=== PATIENT | male | born 1955 | race Hispanic/Latino ===

== ENCOUNTER 2018-10-01 18:23 | Inpatient (IN) | payer MEDICARE, OTHER ==
[~2018-10-01] VITALS: Ht 177.8 cm; Wt 93.4 kg
[~2018-10-01 18:23] MED LIST: ASPIRIN81 MG PO; DIGOXIN250 MCG PO; FLAGYL500 MG PO; HUMULIN 70100 UNIT/1; HUMULIN R100 UNIT/2 SC; LIPITOR20 MG PO; LISINOPRIL2.5 MG PO; METOPROLOL SUCC25 MG PO; NEXIUM40 MG PO; NOVOLOG MI100 UNITS/ SQ; PEPCID20 MG PO; PLAVIX75 MG PO; TRULICITY INJ; WOUND VAC; [UNRECOGNIZED DRUG - CODE] PO
--- OUTSIDE RECORDS SUMMARY | 2018-10-01 18:27 | XMS REPORT | Summary of Care ---
Author Author [facility] Organization [facility] Address Unknown Phone Unavailable Encounter HQ Encntr_alias(FIN) [id number] Date(s): 08/06/17 - 08/06/17 [facility] [address] [place] [address]- [phone] Discharge Disposition: Home or Self Care Attending Physician: Ana Gunn DO Referring Physician: Ana Gunn DO Vital Signs No data available for this section Problem List No data available for this section Allergies, Adverse Reactions, Alerts No data available for this section Medications No data available for this section Results No data available for this section Immunizations No data available for this section Procedures No data available for this section Social History No data available for this section Assessment and Plan No data available for this section
--- OUTSIDE RECORDS SUMMARY | 2018-10-01 18:27 | XMS REPORT | Summary of Care ---
Author Author [facility] [place] Organization [facility] [place] Address Unknown Phone Unavailable Encounter HQ Encntr_alias(FIN) [id number] Date(s): 07/24/17 - 07/24/17 [facility] [place] [address] [address] [phone] Discharge Disposition: Home or Self Care Attending Physician: Chaka Andrea MD Vital Signs No data available for this [...]
--- OUTSIDE RECORDS SUMMARY | 2018-10-01 18:27 | XMS REPORT | Summary of Care ---
Author Author [facility] Outpatient [facility] Address Unknown Phone Unavailable Encounter HQ Encntr_alias(FIN) [id number] Date(s): 07/26/17 - 07/26/17 [facility] [address] [facility], [address] [place] [phone] Discharge Disposition: Home or Self Care Attending [...]
--- OUTSIDE RECORDS SUMMARY | 2018-10-01 18:27 | XMS REPORT | Continuity of Care Document ---
Author Author [email or web address] Organization [email or web address] Address Unknown Phone Unavailable Care Team Providers Care Supervisor [place] Department Name Role Phone [employer] Unavailable Unavailable Problems Problem Status Onset Date Classification Date Reported Comments Source Calculus of gallbladder with chronic cholecystitis without obstruction 09/07/2017 03/17/2018 [facility] LAP MARTÍNEZ Active 08/19/2017 [facility] R10.9, K80.20 Active 08/01/2017 [facility] M54.2 - CERVICALGIA Active 07/17/2017 LISA Hernandez Heart failure, unspecified Active Diagnosis 12/22/2015 [facility] Atheroscler of [place] artery of both legs with intermit claudication Active Diagnosis 12/22/2015 [facility] Benign hypertensive heart disease without heart failure Active Problem 12/22/2015 [facility] 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, type II or unspecified type, not stated as uncontrolled Active Problem 12/22/2015 [facility] 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, type I [juvenile type], not stated as uncontrolled Active Problem 12/22/2015 [facility] Atherosclerosis of [place] coronary artery, angina presence unspecified, unspecified whether [place] or transplanted heart Active Diagnosis 12/22/2015 [facility] Hypertensive heart disease with heart failure Active Diagnosis 12/22/2015 [facility] Pure hypercholesterolemia Active Problem 12/22/2015 [facility] Coronary atherosclerosis of [place] coronary artery Active Problem 12/22/2015 [facility] Calculus in biliary tract (disorder) Active Problem 03/17/2018 [facility] Cardiac defibrillator in situ (finding) Active Problem 03/17/2018 [facility] Cardiac pacemaker in situ (finding) Active Problem 03/17/2018 [facility] Coronary arteriosclerosis (disorder) Active Problem 03/17/2018 [facility] Diabetes mellitus (disorder) Active Problem 03/17/2018 [facility] Gastroesophageal reflux disease (disorder) Active Problem 03/17/2018 [facility] History of - myocardial infarction (context-dependent category) Active Problem 03/17/2018 [facility] Hyperlipidemia (disorder) Active Problem 03/17/2018 [facility] Gastro-esophageal reflux disease without esophagitis 03/17/2018 [facility] Essential (primary) hypertension 03/17/2018 [facility] Type 2 diabetes mellitus without complications 03/17/2018 [facility] oysterman (current) use of insulin 03/17/2018 [facility] Personal history of other diseases of the circulatory system 03/17/2018 [facility] Presence of coronary angioplasty implant and graft 03/17/2018 [facility] Presence of cardiac pacemaker 03/17/2018 [facility] intermediate (current) use of antithrombotics/antiplatelets 03/17/2018 [facility] Old myocardial infarction 03/17/2018 [facility] Unspecified asthma, uncomplicated 03/17/2018 [facility] oysterman (current) use of opiate analgesic 03/17/2018 [facility] Medications Medication Details Route Status Patient Instructions Ordering Provider Order Date Source ketOROLAC (ANES) IV, ONCE Inactive 08/28/2017 [facility] neostigmine (ANES) Route: IV, Drug form: INJ, ONCE, Stop date: 08/28/17 12:33:00 CDT Inactive 08/28/2017 [facility] glycopyrrolate (ANES) Route: IV, Drug form: INJ, ONCE, Stop date: 08/28/17 12:33:00 CDT Inactive 08/28/2017 [facility] phenylephrine (ANES) Route: IV, Drug form: INJ, ONCE, Stop date: 08/28/17 12:27:00 CDT Inactive 08/28/2017 [facility] Ketorolac 30 mg, 1 mL, Route: IVP, Drug form: INJ, ONCE, Dosing Weight 100.114, kg, Start date: 08/28/17 12:22:00 CDT, Stop date: 08/28/17 12:22:00 CDTNotes: (Same as:Toradol) IV bolus must be given >15 seconds. Give IM administration slowly and deeply into the muscle. Not for use > 4 days MEDICATION WASTE Product Size: 30 mg Product Wasted: ___ mg No Longer Active 08/28/2017 [facility] Acetaminophen 1,000 mg, Route: IVPB, Drug form: INJ, ONCE, Dosing Weight 100.114, kg, PRN Pain Score 1-3, Start date: 08/28/17 12:22:00 CDT Inactive 08/28/2017 [facility] Morphine 2 mg, Route: IVP, Q5Min, Dosing Weight 100.114, kg, PRN Pain Score 4-6, Start date: 08/28/17 12:22:00 CDT, Duration: 5 doses or times, Stop date: Limited # of times Inactive 08/28/2017 [facility] Oxycodone 5 mg, Route: PO, Drug form: TAB, Q4H, Dosing Weight 100.114, kg, PRN Pain Score 4-6, Start date: 08/28/17 12:22:00 CDT, Duration: 30 day, Stop date: 09/27/17 12:21:00 CDT Inactive 08/28/2017 [facility] Hydromorphone 0.5 mg, Route: IVP, Q5Min, Dosing Weight 100.114, kg, PRN Pain Score 7-10, Start date: 08/28/17 12:22:00 CDT, Duration: 4 doses or times, Stop date: Limited # of times Inactive 08/28/2017 [facility] Fentanyl 25 microgram, Route: IVP, Q5Min, Dosing Weight 100.114, kg, PRN Pain Score 4-6, Priority: Routine, Start date: 08/28/17 12:22:00 CDT, Duration: 4 doses or times, Stop date: Limited # of times Inactive 08/28/2017 [facility] Naloxone 0.4 mg, Route: IVP, Q2MIN, Dosing Weight 100.114, kg, PRN Narcotic Reversal, Start date: 08/28/17 12:22:00 CDT, Duration: 8 doses or times, Stop date: Limited # of times Inactive 08/28/2017 [facility] Flumazenil 0.2 mg, Route: IVP, PRN, Dosing Weight 100.114, kg, PRN Benzodiazepine Reversal, Initial dose, Start date: 08/28/17 12:22:00 CDT, Duration: 30 day, Stop date: 09/27/17 12:21:00 CDT Inactive 08/28/2017 [facility] Diphenhydramine 12.5 mg, Route: IVP, Drug form: INJ, Q6H, Dosing Weight 100.114, kg, PRN Itching, Start date: 08/28/17 12:22:00 CDT, Duration: 30 day, Stop date: 09/27/17 12:21:00 CDT Inactive 08/28/2017 [facility] Meperidine 12.5 mg, Route: IVP, Q30Min, Dosing Weight 100.114, kg, PRN Other -See Comment, For shivering, Start date: 08/28/17 12:22:00 CDT, Duration: 2 doses or times, Stop date: Limited # of times Inactive 08/28/2017 [facility] Promethazine 6.25 mg, Route: IVPB, ONCE, Dosing Weight 100.114, kg, PRN Nausea & Vomiting, Start date: 08/28/17 12:22:00 CDT Inactive 08/28/2017 [facility] 72 HR Scopolamine 0.0139 MG/HR Transdermal Patch 1 patch, Route: TOP, Drug Form: ERFILM, Dosing Weight 100.114, kg, ONCE, Apply behind ear. Avoid use in elderly., Start date: 08/28/17 12:22:00 CDT, Stop date: 08/28/17 12:22:00 CDTNotes: Change patch every 72 hours (Same as: Transderm-Scop) No Longer Active 08/28/2017 [facility] Ondansetron 4 mg, Route: IVP, ONCE, Dosing Weight 100.114, kg, PRN Nausea & Vomiting, Start date: 08/28/17 12:22:00 CDT Inactive 08/28/2017 [facility] Calcium Chloride 0.0014 MEQ/ML / Potassium Chloride 0.004 MEQ/ML / Sodium Chloride 0.103 MEQ/ML / Sodium Lactate 0.028 MEQ/ML Injectable Solution 1,000 mL, Rate: 125 ml/hr, Infuse over: 8 hr, Route: IV, Dosing Weight 100.114 kg, Total Volume: 1,000, Start date: 08/28/17 12:22:00 CDT, Duration: 30 day, Stop date: 09/27/17 12:21:00 CDT, 2.26, m2 Inactive 08/28/2017 [facility] Acetaminophen 300 MG / Codeine Phosphate 30 MG Oral Tablet [Tylenol with Codeine #3] 1 - 2 tab, PO, Q4H, PRN Pain, X 3 day, # 20 tab, 0 Refill(s) No Longer Active 08/28/2017 [facility] dexamethasone (ANES) Route: IV, Drug form: INJ, ONCE, Stop date: 08/28/17 11:32:00 CDT Inactive 08/28/2017 [facility] diphenhydrAMINE (ANES) Route: IV, Drug form: INJ, ONCE, Stop date: 08/28/17 11:32:00 CDT Inactive 08/28/2017 [facility] acetaminophen (ANES) Route: IV, Drug form: INJ, ONCE, Stop date: 08/28/17 11:27:00 CDT Inactive 08/28/2017 [facility] metoclopramide (ANES) Route: IV, Drug form: INJ, ONCE, Stop date: 08/28/17 11:27:00 CDT Inactive 08/28/2017 [facility] Amidate (ANES) Route: IV, Drug form: INJ, ONCE, Stop date: 08/28/17 11:27:00 CDT Inactive 08/28/2017 [facility] rocuronium (ANES) Route: IV, Drug form: INJ, ONCE, Stop date: 08/28/17 11:27:00 CDT Inactive 08/28/2017 [facility] ceFAZolin (ANES) Route: IV, Drug form: INJ, ONCE, Stop date: 08/28/17 11:27:00 CDT Inactive 08/28/2017 [facility] famotidine (ANES) Route: IV, Drug form: INJ, ONCE, Stop date: 08/28/17 11:27:00 CDT Inactive 08/28/2017 [facility] midazolam (ANES) Route: IV, Drug form: SOLN, ONCE, Stop date: 08/28/17 11:22:00 CDT Inactive 08/28/2017 [facility] propofol (ANES) Route: IV, Drug form: INJ, ONCE, Stop date: 08/28/17 11:22:00 CDT Inactive 08/28/2017 [facility] fentaNYL (ANES) Route: IV, Drug form: INJ, ONCE, Stop date: 08/28/17 11:22:00 CDT Inactive 08/28/2017 [facility] lidocaine (ANES) Route: IV, Drug form: INJ, ONCE, Stop date: 08/28/17 11:22:00 CDT Inactive 08/28/2017 [facility] Lactated Ringers Injection IV (ANES) 1000 mL Route: IV, Total Volume: 1,000, Start date: 08/28/17 10:21:00 CDT, Stop date: 08/28/17 11:21:00 CDT Inactive 08/28/2017 [facility] Calcium Chloride 0.0014 MEQ/ML / Potassium Chloride 0.004 MEQ/ML / Sodium Chloride 0.103 MEQ/ML / Sodium Lactate 0.028 MEQ/ML Injectable Solution 1,000 mL, Rate: 25 ml/hr, Infuse over: 40 hr, Route: IV, Dosing Weight 100.114 kg, Total Volume: 1,000, Start date: 08/28/17 8:49:00 CDT, Duration: 30 day, Stop date: 09/27/17 8:48:00 CDT, 2.26, m2 Inactive 08/28/2017 [facility] 72 HR Scopolamine 0.0139 MG/HR Transdermal Patch 1 patch, Route: TOP, Drug Form: ERFILM, Dosing Weight 100.114, kg, ONCE, Start date: 08/28/17 8:49:00 CDT, Stop date: 08/28/17 8:49:00 CDT Inactive 08/28/2017 [facility] Melatonin Bedtime, 0 Refill(s) Active 08/23/2017 [facility] Glucosamine PO, 0 Refill(s) Active 08/23/2017 [facility] Nortriptyline PO, 0 Refill(s) Active 08/23/2017 [facility] Trulicity Pen SUB-Q, 0 Refill(s) Active 08/23/2017 [facility] Esomeprazole 40 MG Enteric Coated Capsule [Nexium] 40 mg=1 cap, PO, Daily, # 30 cap, 0 Refill(s) Active 08/23/2017 [facility] clopidogrel 75 mg oral tablet 75 mg=1 tab, PO, Daily, # 30 tab, 0 Refill(s) Active 08/23/2017 [facility] Lisinopril PO, Daily, 0 Refill(s) Active 08/23/2017 [facility] metoprolol tartrate 25 mg oral tablet 25 mg=1 tab, PO, BID, # 180 tab, 0 Refill(s) Active 08/23/2017 [facility] Lipitor PO, Daily, 0 Refill(s) Active 08/23/2017 [facility] Plavix 1 tablet Orally Active 75 MG Orally Once a day [facility] 01/11/2014 Micki Sweet Nexium 1 capsule Orally Active 40 MG Orally [facility] Liz[facility] Unknown NA Active [facility] Glucosamine Chondroitin Complx Unknown NA Active [facility] Lipitor 1 tablet Orally Active 10 MG Orally Once a [facility] rose Lisinopril 1 tablet Orally Active 5 MG Orally Once a day [facility] Insulin Unknown NA Active [facility] Trulicity 0.5 ml Subcutaneous Active 0.75 MG/0.5ML Subcutaneous [facility] Multi For Him 50+ Unknown NA Active [facility] Metoprolol Succinate one half tablet Orally Active 50 MG Orally twice a day [facility] Allergies, Adverse Reactions, Alerts Substance Category Reaction Severity Reaction type Status Date Reported Comments Source N.K.D.A. Adverse Reaction Info Not Available Adverse Reaction Active 03/08/2015 [facility] Immunizations No Data Provided for This Section Results No Data Provided for This Section Pathology Reports No Data Provided for This Section Diagnostic Reports Report Value Date Source Abdomen RUQ US Patient Name: ARCHANA ABDI : 1955; Age: 62 years Male MR: [id number] Study: Abdomen RUQ US 08/06/2017 11:35 AM CDT Clinical Indication: - R10.9 Unspecified abdominal pain. COMPARISON: None TECHNIQUE: Grayscale and limited color sonographic evaluation of the right upper quadrant of the abdomen and gallbladder region was performed with standard technique. FINDINGS: LIVER: The visualized liver shows normal contour, size, and morphology. There is increased parenchymal echotexture. BILE DUCTS: The intrahepatic and extrahepatic bile ducts are not dilated. The common bile duct measures 3.9 mm. The distal common bile duct is not well seen. GALLBLADDER: Shadowing gallstones with slight gallbladder wall thickening up to 4.2 mm. PANCREAS: Obscured by bowel gas. KIDNEY: The right kidney measures 12.5 x 6.5 x 6.2 cm. The renal cortical thickness measures 1.6 cm. There is normal renal contour and morphology, with normal parenchymal echotexture. There is no hydronephrosis. AORTA AND INFERIOR VENA CAVA: Visualized portions appear normal. ASCITES: There is no right upper quadrant abdominal ascites. IMPRESSION: 1. Hepatocellular disease most likely due to fatty infiltration. 2. Gallstones with gallbladder wall thickening. In the right clinical setting, cholecystitis could be considered. These findings are communicated to Ana Gunn DO via perfect serve at 08/06/2017 2:55 PM CDT. SL: [id number] 08/06/2017 [facility] wo contrast CT EXAM: CT CHEST WITHOUT CONTRAST DATE: 07/26/2017 11:47 AM CDT INDICATION: - R07.9 Chest pain, unspecified TECHNIQUE: Volumetric CT acquisition of the chest without contrast. Axial, sagittal and coronal reconstructions. Axial MIP images included. IV contrast: None. DLP: 845 mGy-cm COMPARISON: Two-view chest x-ray July 24, 2017 DISCUSSION: Lower Neck: The visible portions or the lower neck and thyroid are unremarkable. Heart, Mediastinum, and Great Vessels: No cardiomegaly or pericardial effusion. Atherosclerotic disease is present in the coronary arteries. Leads from the ICD/pacemaker terminate in the right atrium, right ventricle, and coronary sinus. Lymph Nodes: No mediastinal, axillary or internal mammary lymphadenopathy. Hilar lymph nodes are suboptimally evaluated due to the absence of IV contrast. Lungs and airways and pleura: No pleural effusion or pneumothorax. There is subsegmental atelectasis in the bilateral lung lower lobes, middle lobe, and lingula. There is elevation of the right hemidiaphragm. The airways are clear. No suspicious pulmonary nodules. Esophagus and Upper abdomen: There are numerous cholesterol stones within the gallbladder. Additionally there is a small amount of pericholecystic fluid as well as mild fat stranding adjacent to the gallbladder. There is fatty atrophy of the pancreas. Calcified granulomas are present in the spleen. Bones and Soft Tissues: Degenerative changes are seen throughout the visualized spine. Healed left-sided rib fractures are present. No aggressive bony lesions. Pulse generator from ICD/pacemaker is present in the subcutaneous tissues of the anterior left chest wall IMPRESSION: 1. Subsegmental atelectasis in the bilateral lower lobes as well as the right middle lobe and lingula with elevation of the right hemidiaphragm. 2. Cholelithiasis with small amount of pericholecystic fluid and mild pericholecystic fat stranding. Further evaluation with ultrasound of the abdomen is recommended. 07/26/2017 [facility] 2 views DX Exam: Two-view chest x-ray Reason for Exam: - R07.9 Chest pain, unspecified Comparison Exam: X-ray 09/02/2004 Discussion: Cardiomediastinal silhouette is within normal limits. Atelectasis/airspace consolidation seen within the right lower lung, obscuring the right hemidiaphragm. 2-lead cardiac device is seen with the base overlying the lateral aspect of the left hemithorax. Patient is status post ORIF of the left clavicle. No acute bony abnormalities. Impression: 1. Atelectasis/airspace consolidation seen within the right lower lung, obscuring the right hemidiaphragm. 07/24/2017 LISA [facility] Spine cervical series DX EXAM: Spine cervical series DX HISTORY: - M54.2 Cervicalgia COMPARISON: None AP, lateral, odontoid, lateral flexion and lateral extension views of the cervical spine. FINDINGS: AP alignment is normal and there is no listhesis with flexion or extension. There is moderate uncovertebral hypertrophy change of the cervical spine. There is moderate disc space narrowing at C6-7 and mild disc space narrowing at C7-T1. Prevertebral soft tissues are normal. There is a left clavicle fixation plate and screws. IMPRESSION: Degenerative change as above. 07/17/2017 LISA Hernandez Consultation Notes No Data Provided for This Section Discharge Summaries No Data Provided for This Section History and Physicals No Data Provided for This Section Vital Signs Vital Sign Value Date Comments Source Systolic (mm Hg) 120 08/28/2017 [facility] Diastolic (mm Hg) 67 08/28/2017 [facility] Respitory Rate 14 08/28/2017 [facility] Systolic (mm Hg) 100 08/28/2017 [facility] Diastolic (mm Hg) 55 08/28/2017 [facility] Respitory Rate 12 08/28/2017 [facility] Systolic (mm Hg) 106 08/28/2017 [facility] Diastolic (mm Hg) 45 08/28/2017 [facility] Respitory Rate 10 08/28/2017 [facility] BMI Calculated 30.78 08/23/2017 [facility] Weight 100.114 08/23/2017 [facility] Height 180.34 cm 08/23/2017 [facility] Temperature Oral (F) 97.9 F 08/23/2017 [facility] Heart Rate 78 08/23/2017 [facility] Weight 217 03/08/2015 Micki Sweet Heart Rate 76 03/08/2015 Micki Sweet Diastolic (mm Hg) 70 03/08/2015 Micki Sweet Systolic (mm Hg) 130 03/08/2015 Micki Sweet Encounters Location Location Details Encounter Type Encounter Number Reason For Visit Attending Provider ADM Date DC Date Status Source Micki Sweet MD, PA f/u 2 [facility] [id number] 03/08/2015 03/08/2015 Micki Sweet [facility] [place] [facility] [id number] Carissa Saturday07/17/2017 07/18/2017 LISA Camachoadena [facility] [place] [facility] [id number] Chaka Andrea 07/24/2017 07/25/2017 LISA Morrisa [facility] [place] [facility] [id number] Chaka Andrea 07/26/2017 07/27/2017 [facility] Outpatient [id number] Obonoruma Ekhaese 08/06/2017 08/07/2017 [facility] [id number] [place] Ekhaese 08/28/2017 08/28/2017 [facility] Procedures Procedure Code Date Perfomer Comments Source Placement of stent in cardiac conduit [id number] 02/11/2015 [facility] Arthroscopy of knee [id number] [facility] Arthroscopy of shoulder [id number] [facility] Cardiac catheterization [id number] [facility] Implantation of automatic cardiac defibrillator [id number] [facility] Implantation of cardiac pacemaker [id number] [facility] Operation [id number] [facility] Assessment and Plan No Data Provided for This Section Plan of Care No Data Provided for This Section Social History Social History Date Source Social History TypeResponse Substance Abuse Use: None. Alcohol Past, Previous treatment: None. Smoking Status Never smoker; Exposure to Tobacco Smoke None; Cigarette Smoking Last 365 Days No; Reg Smoking Cessation Counseling No entered on: 08/28/17 08/23/2017 [facility] No data available for this section 07/27/2017 [facility] [place] No data available for this section 07/25/2017 LISA David Social History ElementQualifiersDate Reported Caffeine: yes. 1 diet coke a day Mar 08, 2015 Smoking: no. Are you a: Never smoker Mar 08, 2015 Alcohol: socially. socially, very rarely Mar 08, 2015 03/08/2015 Micki Sweet Family History No Data Provided for This Section Advance Directives No Data Provided for This Section Functional Status No Data Provided for This Section
--- OUTSIDE RECORDS SUMMARY | 2018-10-01 18:27 | XMS REPORT | Summary of Care ---
Author Author [facility] [place] Organization [facility] [place] Address Unknown Phone Unavailable Encounter HQ Encntr_alias(FIN) [id number] Date(s): 07/17/17 - 07/17/17 [facility] [place] [address] [address]- [phone] Discharge Disposition: Home or Self Care Attending Physician: SaturdayCarissa MD Vital Signs No data available for [...]
--- OUTSIDE RECORDS SUMMARY | 2018-10-01 18:27 | XMS REPORT ---
Author Author Micki Sweet Organization [employer] Address Unknown Phone Unavailable Care Team Providers Care Home Health Attendant Name Role Phone Micki Sweet CP Unavailable Allergies, Adverse Reactions, Alerts Substance Reaction Event Type N.K.D.A. 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, type I [juvenile type], not stated as uncontrolled 250.01 Active Assessment Atherosclerosis of kaib[place] coronary artery, angina presence unspecified, unspecified whether kaibab or transplanted heart I25.10 Active Assessment Hypertensive heart disease with heart failure I11.0 Active Problem Pure hypercholesterolemia 272.0 Active Problem Coronary atherosclerosis of kaib[place] coronary artery 414.01 Active Medications Medication Code System Code Instructions Start Date End Date Status Dosage Plavix [facility] [address]-85 75 MG Orally Once a day Jan 11, 2014 Active 1 tablet Nexium [facility] [address]-89 40 MG Orally Once a day Active 1 capsule Lizzy Unknown 0 Active Unknown Glucosamine Chondroitin Complx [facility] 42224-[address]391 Active Unknown Lipitor [facility] [address]-89 10 MG Orally Once a day Active 1 tablet Lisinopril [facility] [address]-23 5 MG Orally Once a day Active 1 tablet Insulin Unknown 0 Active Unknown Trulicity [facility] [address]-24 0.75 MG/0.5ML Subcutaneous Active 0.5 ml Multi For Him 50+ [facility] 04803-88890 Active Unknown Metoprolol Succinate [facility] [address]-20 50 MG Orally twice a day Active one half tablet Social History Social History Element Qualifiers Date Reported Caffeine: yes. 1 diet coke a day Mar 08, 2015 Smoking: no. Are you a: Never smoker Mar 08, 2015 Alcohol: socially. socially, very rarely Mar 08, 2015 Vital Signs Date/Time: Mar 08, 2015 Weight 217 lbs Cardiac Monitoring Heart Rate 76 /min Blood Pressure Diastolic 70 mm Hg Blood Pressure Systolic 130 mm Hg Summary Purpose [employer] Submission
--- OUTSIDE RECORDS SUMMARY | 2018-10-01 18:28 | XMS REPORT | Summary of Care ---
Author Author [facility] Organization [facility] Address Unknown Phone Unavailable Encounter MAREN Auguste(FIORDALIZA) [id number] Date(s): 08/28/17 - 08/28/17 [facility] [address] [place] [address]- [phone] Encounter Diagnosis Calculus of gallbladder with chronic cholecystitis without obstruction (Final) - 09/06/17 Gastro-esophageal reflux disease without esophagitis (Final) - Essential (primary) hypertension (Final) - Type 2 diabetes mellitus without complications (Final) - senior care (current) use of insulin (Final) - Personal history of other diseases of the circulatory system (Final) - Presence of coronary angioplasty implant and graft (Final) - Presence of cardiac pacemaker (Final) - [employer] (current) use of antithrombotics/antiplatelets (Final) - Old myocardial infarction (Final) - Unspecified asthma, uncomplicated (Final) - senior care (current) use of opiate analgesic (Final) - Discharge Disposition: Home or Self Care Attending Physician: Ana Gunn DO Referring Physician: Ana Gunn DO Vital Signs 1 2 3 Most recent to oldest [Reference Range]: 180.34 cm (08/23/17 8:48 AM) Height 97.9 DegF (08/23/17 8:48 AM) Temperature Oral [96.4-99.1 DegF] 120/67 mmHg (08/28/17 1:50 PM) 100/55 mmHg (08/28/17 1:39 PM) 106/45 mmHg (08/28/17 1:25 PM) Blood Pressure [90-140/60-90 mmHg] 14 BRMIN (08/28/17 1:50 PM) 12 BRMIN *LOW* (08/28/17 1:39 PM) 10 BRMIN *LOW* (08/28/17 1:25 PM) Respiratory Rate [14-20 BRMIN] 78 bpm (08/23/17 8:48 AM) Peripheral Pulse Rate [60-100 bpm] 100.114 kg (08/23/17 8:48 AM) Weight 30.78 m2 (08/23/17 8:48 AM) Body Mass Index Problem List Condition Effective Dates Status Health Status Informant Cholelithiasis(Confi Active rmed) Cardiac Active defibrillator in place(Confirmed) Pacemaker(Confirmed) Active CAD (coronary artery Active disease)(Confirmed) Diabetes(Confirmed) Active Acid Active reflux(Confirmed) History of heart Active attack(Confirmed) Hyperlipidemia(Confi Active rmed) Allergies, Adverse Reactions, Alerts Substance Reaction Severity Status NKDA Active Medications acetaminophen (ANES) Route: IV, Drug form: INJ, ONCE, Stop date: 08/28/17 11:27:00 CDT Start Date: 08/28/17 Stop Date: 08/28/17 Status: Completed Amidate (ANES) Route: IV, Drug form: INJ, ONCE, Stop date: 08/28/17 11:27:00 CDT Start Date: 08/28/17 Stop Date: 08/28/17 Status: Completed ANES acetaminophen 1,000 mg, Route: IVPB, Drug form: INJ, ONCE, Dosing Weight 100.114, kg, PRN Pain Score 1-3, Start date: 08/28/17 12:22:00 CDT Start Date: 08/28/17 Stop Date: 08/28/17 Status: Discontinued ANES diphenhydrAMINE 12.5 mg, Route: IVP, Drug form: INJ, Q6H, Dosing Weight 100.114, kg, PRN Itching , Start date: 08/28/17 12:22:00 CDT, Duration: 30 day, Stop date: 09/27/17 12:21 :00 CDT Start Date: 08/28/17 Stop Date: 08/28/17 Status: Discontinued ANES fentaNYL 25 microgram, Route: IVP, Q5Min, Dosing Weight 100.114, kg, PRN Pain Score 4-6, Priority: Routine, Start date: 08/28/17 12:22:00 CDT, Duration: 4 doses or times , Stop date: Limited # of times Start Date: 08/28/17 Stop Date: 08/28/17 Status: Discontinued ANES fentaNYL 50 microgram, Route: IVP, Q5Min, Dosing Weight 100.114, kg, PRN Pain Score 7-10, Priority: Routine, Start date: 08/28/17 12:22:00 CDT, Duration: 2 doses or time s, Stop date: Limited # of times Start Date: 08/28/17 Stop Date: 08/28/17 Status: Completed ANES flumazenil 0.2 mg, Route: IVP, PRN, Dosing Weight 100.114, kg, PRN Benzodiazepine Reversal, Initial dose, Start date: 08/28/17 12:22:00 CDT, Duration: 30 day, Stop date: 0 09/27/17 12:21:00 CDT Start Date: 08/28/17 Stop Date: 08/28/17 Status: Discontinued ANES HYDROmorphone 0.5 mg, Route: IVP, Q5Min, Dosing Weight 100.114, kg, PRN Pain Score 7-10, Start date: 08/28/17 12:22:00 CDT, Duration: 4 doses or times, Stop date: Limited # of times Start Date: 08/28/17 Stop Date: 08/28/17 Status: Discontinued ANES ketOROLAC 30 mg, 1 mL, Route: IVP, Drug form: INJ, ONCE, Dosing Weight 100.114, kg, Start date: 08/28/17 12:22:00 CDT, Stop date: 08/28/17 12:22:00 CDT Notes: (Same as:Toradol) IV bolus must be given >15 seconds. Give IM administration slowly and deeply into the muscle.Not for use > 4 days MEDICATION WASTE Product Size: 30 mgProduct Wasted: ___ mg Start Date: 08/28/17 Stop Date: 09/07/17 Status: Discontinued ANES meperidine 12.5 mg, Route: IVP, Q30Min, Dosing Weight 100.114, kg, PRN Other -See Comment, For shivering, Start date: 08/28/17 12:22:00 CDT, Duration: 2 doses or times, St op date: Limited # of times Start Date: 08/28/17 Stop Date: 08/28/17 Status: Discontinued ANES morphine Sulfate 2 mg, Route: IVP, Q5Min, Dosing Weight 100.114, kg, PRN Pain Score 4-6, Start da te: 08/28/17 12:22:00 CDT, Duration: 5 doses or times, Stop date: Limited # of t imes Start Date: 08/28/17 Stop Date: 08/28/17 Status: Discontinued ANES morphine Sulfate 4 mg, Route: IVP, Q5Min, Dosing Weight 100.114, kg, PRN Pain Score 7-10, Start d ate: 08/28/17 12:22:00 CDT, Duration: 3 doses or times, Stop date: Limited # of times Start Date: 08/28/17 Stop Date: 08/28/17 Status: Discontinued ANES naloxone 0.4 mg, Route: IVP, Q2MIN, Dosing Weight 100.114, kg, PRN Narcotic Reversal, Sta rt date: 08/28/17 12:22:00 CDT, Duration: 8 doses or times, Stop date: Limited # of times Start Date: 08/28/17 Stop Date: 08/28/17 Status: Discontinued ANES ondansetron 4 mg, Route: IVP, ONCE, Dosing Weight 100.114, kg, PRN Nausea & Vomiting, Start date: 08/28/17 12:22:00 CDT Start Date: 08/28/17 Stop Date: 08/28/17 Status: Discontinued ANES oxyCODONE 5 mg, Route: PO, Drug form: TAB, Q4H, Dosing Weight 100.114, kg, PRN Pain Score 4-6, Start date: 08/28/17 12:22:00 CDT, Duration: 30 day, Stop date: 09/27/17 12 :21:00 CDT Start Date: 08/28/17 Stop Date: 08/28/17 Status: Discontinued ANES oxyCODONE 10 mg, Route: PO, Drug form: TAB, Q4H, Dosing Weight 100.114, kg, PRN Pain Score 7-10, Start date: 08/28/17 12:22:00 CDT, Duration: 30 day, Stop date: 09/27/17 12:21:00 CDT Start Date: 08/28/17 Stop Date: 08/28/17 Status: Discontinued ANES promethazine 6.25 mg, Route: IVPB, ONCE, Dosing Weight 100.114, kg, PRN Nausea & Vomiting, Start date: 08/28/17 12:22:00 CDT Start Date: 08/28/17 Stop Date: 08/28/17 Status: Discontinued ANES scopolamine 1.5 mg transdermal film 1 patch, Route: TOP, Drug Form: ERFILM, Dosing Weight 100.114, kg, ONCE, Apply b ehind ear. Avoid use in elderly., Start date: 08/28/17 12:22:00 CDT, Stop date: 08/28/17 12:22:00 CDT Notes: Change patch every 72 hours (Same as: Transderm-Scop) Start Date: 08/28/17 Stop Date: 09/07/17 Status: Discontinued ceFAZolin (ANES) Route: IV, Drug form: INJ, ONCE, Stop date: 08/28/17 11:27:00 CDT Start Date: 08/28/17 Stop Date: 08/28/17 Status: Completed clopidogrel 75 mg oral tablet 75 mg=1 tab, PO, Daily, # 30 tab, 0 Refill(s) Start Date: 08/23/17 Status: Ordered dexamethasone (ANES) Route: IV, Drug form: INJ, ONCE, Stop date: 08/28/17 11:32:00 CDT Start Date: 08/28/17 Stop Date: 08/28/17 Status: Completed diphenhydrAMINE (ANES) Route: IV, Drug form: INJ, ONCE, Stop date: 08/28/17 11:32:00 CDT Start Date: 08/28/17 Stop Date: 08/28/17 Status: Completed famotidine (ANES) Route: IV, Drug form: INJ, ONCE, Stop date: 08/28/17 11:27:00 CDT Start Date: 08/28/17 Stop Date: 08/28/17 Status: Completed fentaNYL (ANES) Route: IV, Drug form: INJ, ONCE, Stop date: 08/28/17 11:22:00 CDT Start Date: 08/28/17 Stop Date: 08/28/17 Status: Completed glucosamine PO, 0 Refill(s) Start Date: 08/23/17 Status: Ordered glycopyrrolate (ANES) Route: IV, Drug form: INJ, ONCE, Stop date: 08/28/17 12:33:00 CDT Start Date: 08/28/17 Stop Date: 08/28/17 Status: Completed ketOROLAC (ANES) IV, ONCE Start Date: 08/28/17 Stop Date: 08/28/17 Status: Completed Lactated Ringers Injection IV (ANES) 1000 mL Route: IV, Total Volume: 1,000, Start date: 08/28/17 10:21:00 CDT, Stop date: 11:21:00 CDT Start Date: 08/28/17 Stop Date: 08/28/17 Status: Completed Lactated Ringers Injection IV 1000 mL 1,000 mL, Rate: 25 ml/hr, Infuse over: 40 hr, Route: IV, Dosing Weight 100.114 k g, Total Volume: 1,000, Start date: 08/28/17 8:49:00 CDT, Duration: 30 day, Stop date: 09/27/17 8:48:00 CDT, 2.26, m2 Start Date: 08/28/17 Stop Date: 08/28/17 Status: Discontinued Lactated Ringers Injection IV 1000 mL 1,000 mL, Rate: 125 ml/hr, Infuse over: 8 hr, Route: IV, Dosing Weight 100.114 k g, Total Volume: 1,000, Start date: 08/28/17 12:22:00 CDT, Duration: 30 day, Sto p date: 09/27/17 12:21:00 CDT, 2.26, m2 Start Date: 08/28/17 Stop Date: 08/28/17 Status: Discontinued lidocaine (ANES) Route: IV, Drug form: INJ, ONCE, Stop date: 08/28/17 11:22:00 CDT Start Date: 08/28/17 Stop Date: 08/28/17 Status: Completed Lipitor PO, Daily, 0 Refill(s) Start Date: 08/23/17 Status: Ordered lisinopril PO, Daily, 0 Refill(s) Start Date: 08/23/17 Status: Ordered melatonin Bedtime, 0 Refill(s) Start Date: 08/23/17 Status: Ordered metoclopramide (ANES) Route: IV, Drug form: INJ, ONCE, Stop date: 08/28/17 11:27:00 CDT Start Date: 08/28/17 Stop Date: 08/28/17 Status: Completed metoprolol tartrate 25 mg oral tablet 25 mg=1 tab, PO, BID, # 180 tab, 0 Refill(s) Start Date: 08/23/17 Status: Ordered midazolam (ANES) Route: IV, Drug form: SOLN, ONCE, Stop date: 08/28/17 11:22:00 CDT Start Date: 08/28/17 Stop Date: 08/28/17 Status: Completed neostigmine (ANES) Route: IV, Drug form: INJ, ONCE, Stop date: 08/28/17 12:33:00 CDT Start Date: 08/28/17 Stop Date: 08/28/17 Status: Completed NexIUM 40 mg oral delayed release capsule 40 mg=1 cap, PO, Daily, # 30 cap, 0 Refill(s) Start Date: 08/23/17 Status: Ordered nortriptyline PO, 0 Refill(s) Start Date: 08/23/17 Status: Ordered phenylephrine (ANES) Route: IV, Drug form: INJ, ONCE, Stop date: 08/28/17 12:27:00 CDT Start Date: 08/28/17 Stop Date: 08/28/17 Status: Completed propofol (ANES) Route: IV, Drug form: INJ, ONCE, Stop date: 08/28/17 11:22:00 CDT Start Date: 08/28/17 Stop Date: 08/28/17 Status: Completed rocuronium (ANES) Route: IV, Drug form: INJ, ONCE, Stop date: 08/28/17 11:27:00 CDT Start Date: 08/28/17 Stop Date: 08/28/17 Status: Completed scopolamine 1.5 mg transdermal film 1 patch, Route: TOP, Drug Form: ERFILM, Dosing Weight 100.114, kg, ONCE, Start d ate: 08/28/17 8:49:00 CDT, Stop date: 08/28/17 8:49:00 CDT Start Date: 08/28/17 Stop Date: 08/28/17 Status: Completed Trulicity Pen SUB-Q, 0 Refill(s) Start Date: 08/23/17 Status: Ordered Tylenol with Codeine #3 oral tablet 1 - 2 tab, PO, Q4H, PRN Pain, X 3 day, # 20 tab, 0 Refill(s) Start Date: 08/28/17 Stop Date: 08/31/17 Status: Completed Results No data available for this section Immunizations No data available for this section Procedures Procedure Date Related Diagnosis Body Site Status Placement of stent in cardiac conduit 2015 Completed Placement of stent in cardiac conduit 2007 Completed Arthroscopy of knee Completed Arthroscopy of shoulder Completed Arthroscopy of shoulder Completed Cardiac catheterization Completed Implantation of automatic cardiac Completed defibrillator Implantation of cardiac pacemaker Completed Operation Completed Operation Completed Operation Completed Social History Social History Type Response Substance Abuse Use: None. Alcohol Past, Previous treatment: None. Smoking Status Never smoker; Exposure to Tobacco Smoke None; Cigarette Smoking Last 365 Days No; Reg Smoking Cessation Counseling No entered on: 08/28/17 Assessment and Plan No data available for this section
--- OUTSIDE RECORDS SUMMARY | 2018-10-01 18:28 | XMS REPORT | Summary of Care ---
Author Author [facility] Organization [facility] Address Unknown Phone Unavailable Encounter [facility] Kalyani(FIN) [id number] Date(s): 08/28/17 - 08/28/[address] [facility] [address] [place] [address]- [phone] Discharge Disposition: Home or Self Care Attending [...] ___ mg Start Date: 08/28/17 Stop Date: 08/28/17 Status: Ordered ANES meperidine 12.5 mg, Route: IVP, Q30Min, [...] as: Transderm-Scop) Start Date: 08/28/17 Stop Date: 08/28/17 Status: Ordered ceFAZolin (ANES) Route: IV, Drug form: INJ, [...] Start Date: 08/28/17 Stop Date: 08/31/17 Status: Ordered Results No data available for this section [...]
[2018-10-01] MEDS ORDERED: DICYCLOMINE HCL10 MG PO (18:37)
[2018-10-01] MEDS ORDERED: VANCOMYCIN HCL250 MG PO (18:37)
[2018-10-01 19:00] LABS: BASOPHILS # (AUTO) 0.1 (0.0-0.1); BASOPHILS % 0.4 % (0.0-1.0); EOSINOPHILS # (AUTO) 0.2 (0.0-0.4); EOSINOPHILS % 0.9 % (0.0-6.0); HEMATOCRIT 46.9 % (38.2-49.6); HEMOGLOBIN 16.6 g/dL (14.0-18.0); LYMPHOCYTES # (AUTO) 0.3 (1.0-3.2); LYMPHOCYTES % 1.6 % (18.0-39.1); MEAN CORPUSCULAR HGB CONC 35.4 g/dL (31-35); MONOCYTES # (AUTO) 1.3 (0.2-0.8); MONOCYTES % 6.7 % (4.4-11.3); NEUTROPHILS # (AUTO) 16.7 (2.1-6.9); NEUTROPHILS % 87.1 % (38.7-80.0); PLATELET COUNT 125 x10e3/uL (140-360); RED BLOOD COUNT 5.72 x10e6/uL (4.3-5.7); RED CELL DISTRIBUTION WIDTH 13.6 % (11.7-14.4)
[2018-10-01] MEDS ORDERED: SODIUM CHLORIDE 0.9% 1000ML 1,000 ML IV ONE ×2 (19:00→19:30)
[2018-10-01 19:15] LABS: ALBUMIN/GLOBULIN RATIO 0.9 (0.8-2.0); ANION GAP 17.1 mmol/L (8-16); CALCIUM 9.1 mg/dL (8.4-10.2); CREATININE, SERUM 1.3 mg/dL (0.72-1.25); POTASSIUM 4.1 mmol/L (3.5-5.1)
[2018-10-01 19:16] LABS: AMYLASE 489 U/L (25-125); LIPASE 341 U/L (8-78)
[2018-10-01] MEDS ORDERED: SODIUM CHLORIDE 0.9% 1000ML 1,000 ML ONE (20:37)
[2018-10-01 20:45] VITALS: BP 174/77
--- NOTE | 2018-10-01 20:46 | Diagnostic Imaging Report ---
EXAM: CT Abdomen and Pelvis WITH contrast INDICATION: ^diarrhea/ abd pain ^[id number] ^1953 COMPARISON: None available. TECHNIQUE: Abdomen and pelvis were scanned utilizing a multidetector helical scanner from the lung base to the pubic symphysis after administration of IV contrast. Coronal and sagittal reformations were obtained. Dose modulation, iterative reconstruction, and/or weight based adjustment of the mA/kV was utilized to reduce the radiation dose to as low as reasonably achievable. Routine protocol was performed. Scan was performed when during portal venous phase. IV CONTRAST: 100 mL of Isovue-370 ORAL CONTRAST: Water COMPLICATIONS: None RADIATION DOSE: Total DLP: 789.62 mGy*cm Estimated effective dose: (DLP x 0.015 x size factor) mSv CTDIvol has been reviewed. It is below the limits set by the Radiation Protocol Committee (RPC). FINDINGS: LINES and TUBES: Distal leads of cardiac device are visualized. LOWER THORAX: Bibasilar atelectasis/scarring. Partially seen atherosclerotic aspiration of coronary arteries. HEPATOBILIARY: No focal hepatic lesions. No biliary ductal dilation. GALLBLADDER: Surgically absent. SPLEEN: No splenomegaly. Calcified granuloma. PANCREAS: No focal masses or ductal dilatation. Minimal peripancreatic fat stranding. ADRENALS: No adrenal nodules KIDNEYS/URETERS: Kidneys enhance symmetrically. No hydronephrosis. Left renal inferior pole scarring and cortical calcification. There is also small focus of right renal superior pole cortical scarring. No stones. GI TRACT: No abnormal distention or evidence of bowel obstruction. Mild wall thickening of the second portion of duodenum and adjacent fat stranding. Appendix is normal. PELVIC ORGANS/BLADDER: Bladder wall thickening. LYMPH NODES: No lymphadenopathy. VESSELS: There is mild atherosclerotic disease in the aorta and major arterial branches. PERITONEUM / RETROPERITONEUM: No free air. Trace dependent ascites. BONES: Unremarkable. SOFT TISSUES: Left buttock injection granulomas. Anterior abdominal wall mild skin thickening and stranding. IMPRESSION: 1. Mild peripancreatic fat stranding, concerning for acute pancreatitis. There is also wall thickening of the second portion of duodenum and mild adjacent fat stranding, which could be reactive due to pancreatitis or represent mild duodenitis. 2. Bladder wall thickening, could represent cystitis. Correlation with urinalysis. Signed by: Dr. Shayne Harrington MD on 10/01/2018 8:43 PM
[2018-10-01 20:50] LABS: LYMPHOCYTES % (MANUAL) 3 % (19-48); MONOCYTES % (MANUAL) 5 % (3.4-9.0); NEUTROPHILS % (MANUAL) 86 % (40-74)
[2018-10-01 20:51] LABS: BAND NEUTROPHILS % (MANUAL) 1 %; METAMYELOCYTES % (MANUAL) 1 % (0-0); MYELOCYTES % (MANUAL) 3 % (0-0); PLATELET ESTIMATE SLIGHTLY DECREASED; PLATELET MORPHOLOGY COMMENT NORMAL; RBC MORPHOLOGY COMMENT NORMAL
[2018-10-01] MEDS ORDERED: ONDANSETRON HCL INJ 2MG/ML 2ML 2 MG/ML VIAL IV PRN (21:15)
[2018-10-01] MEDS ORDERED: DEXTROSE 50% SYRINGE 50 ML IV PRN (21:15)
--- OUTSIDE RECORDS SUMMARY | 2018-10-01 21:18 | XMS REPORT | Continuity of Care Document ---
Author Author [employer] Organization [employer] Address Unknown Phone Unavailable Care Team Providers Care Environmental Remediation Consultant Name Role Phone [employer] Information [employer] Unavailable Unavailable Problems Problem Status Onset Date Classification Date Reported Comments Source Calculus of gallbladder with chronic cholecystitis without obstruction 09/07/2017 03/17/2018 [facility] LAP MARTÍNEZ Active 08/19/2017 [facility] R10.9, K80.20 Active 08/01/2017 [facility] M54.2 - CERVICALGIA Active 07/17/2017 LISA Hernandez Heart failure, unspecified Active Diagnosis 12/22/2015 [facility] Atheroscler of [place] artery of both legs with intermit claudication Active Diagnosis 12/22/2015 [facility] Benign hypertensive heart disease without heart failure Active Problem 12/22/2015 [facility] 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, type II or unspecified type, not stated as uncontrolled Active Problem 12/22/2015 [facility] 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, type I [juvenile type], not stated as uncontrolled Active Problem 12/22/2015 [facility] Atherosclerosis of [place] coronary artery, angina presence unspecified, unspecified whether [place] or transplanted heart Active Diagnosis 12/22/2015 [facility] Hypertensive heart disease with heart failure Active Diagnosis 12/22/2015 [facility] Pure hypercholesterolemia Active Problem 12/22/2015 [facility] Coronary atherosclerosis of [place] coronary artery Active Problem 12/22/2015 [facility] Calculus in biliary tract (disorder) Active Problem 03/17/2018 [facility] Cardiac defibrillator in situ (finding) Active Problem 03/17/2018 [facility] Cardiac pacemaker in situ (finding) Active Problem 03/17/2018 [facility] Coronary arteriosclerosis (disorder) Active Problem 03/17/2018 [facility] Diabetes mellitus (disorder) Active Problem 03/17/2018 [facility] Gastroesophageal reflux disease (disorder) Active Problem 03/17/2018 [facility] History of - myocardial infarction (context-dependent category) Active Problem 03/17/2018 [facility] Hyperlipidemia (disorder) Active Problem 03/17/2018 [facility] Gastro-esophageal reflux disease without esophagitis 03/17/2018 [facility] Essential (primary) hypertension 03/17/2018 [facility] Type 2 diabetes mellitus without complications 03/17/2018 [facility] terminologist (current) use of insulin 03/17/2018 [facility] Personal history of other diseases of the circulatory system 03/17/2018 [facility] Presence of coronary angioplasty implant and graft 03/17/2018 [facility] Presence of cardiac pacemaker 03/17/2018 [facility] senior living (current) use of antithrombotics/antiplatelets 03/17/2018 [facility] Old myocardial infarction 03/17/2018 [facility] Unspecified asthma, uncomplicated 03/17/2018 [facility] terminologist (current) use of opiate analgesic 03/17/2018 [facility] Medications Medication Details Route Status Patient Instructions Ordering Provider Order Date Source ketOROLAC (ANES) IV, ONCE Inactive 08/28/2017 [facility] neostigmine (ANES) Route: IV, Drug form: INJ, ONCE, Stop date: 08/28/17 12:33:00 CDT Inactive 08/28/2017 [facility] glycopyrrolate (ANES) Route: IV, Drug form: INJ, ONCE, Stop date: 08/28/17 12:33:00 CDT Inactive 08/28/2017 [facility] phenylephrine (ANES) Route: IV, Drug form: INJ, ONCE, Stop date: 08/28/17 12:27:00 CDT Inactive 08/28/2017 [facility] Ketorolac 30 mg, 1 mL, Route: IVP, Drug form: INJ, ONCE, Dosing Weight 100.114, kg, Start date: 08/28/17 12:22:00 CDT, Stop date: 08/28/17 12:22:00 CDTNotes: (Same as:Toradol) IV bolus must be given >15 seconds. Give IM administration slowly and deeply into the muscle. Not for use > 4 days MEDICATION WASTE Product Size: 30 mg Product Wasted: ___ mg No Longer Active 08/28/2017 [facility] Acetaminophen 1,000 mg, Route: IVPB, Drug form: INJ, ONCE, Dosing Weight 100.114, kg, PRN Pain Score 1-3, Start date: 08/28/17 12:22:00 CDT Inactive 08/28/2017 [facility] Morphine 2 mg, Route: IVP, Q5Min, Dosing Weight 100.114, kg, PRN Pain Score 4-6, Start date: 08/28/17 12:22:00 CDT, Duration: 5 doses or times, Stop date: Limited # of times Inactive 08/28/2017 [facility] Oxycodone 5 mg, Route: PO, Drug form: TAB, Q4H, Dosing Weight 100.114, kg, PRN Pain Score 4-6, Start date: 08/28/17 12:22:00 CDT, Duration: 30 day, Stop date: 09/27/17 12:21:00 CDT Inactive 08/28/2017 [facility] Hydromorphone 0.5 mg, Route: IVP, Q5Min, Dosing Weight 100.114, kg, PRN Pain Score 7-10, Start date: 08/28/17 12:22:00 CDT, Duration: 4 doses or times, Stop date: Limited # of times Inactive 08/28/2017 [facility] Fentanyl 25 microgram, Route: IVP, Q5Min, Dosing Weight 100.114, kg, PRN Pain Score 4-6, Priority: Routine, Start date: 08/28/17 12:22:00 CDT, Duration: 4 doses or times, Stop date: Limited # of times Inactive 08/28/2017 [facility] Naloxone 0.4 mg, Route: IVP, Q2MIN, Dosing Weight 100.114, kg, PRN Narcotic Reversal, Start date: 08/28/17 12:22:00 CDT, Duration: 8 doses or times, Stop date: Limited # of times Inactive 08/28/2017 [facility] Flumazenil 0.2 mg, Route: IVP, PRN, Dosing Weight 100.114, kg, PRN Benzodiazepine Reversal, Initial dose, Start date: 08/28/17 12:22:00 CDT, Duration: 30 day, Stop date: 09/27/17 12:21:00 CDT Inactive 08/28/2017 [facility] Diphenhydramine 12.5 mg, Route: IVP, Drug form: INJ, Q6H, Dosing Weight 100.114, kg, PRN Itching, Start date: 08/28/17 12:22:00 CDT, Duration: 30 day, Stop date: 09/27/17 12:21:00 CDT Inactive 08/28/2017 [facility] Meperidine 12.5 mg, Route: IVP, Q30Min, Dosing Weight 100.114, kg, PRN Other -See Comment, For shivering, Start date: 08/28/17 12:22:00 CDT, Duration: 2 doses or times, Stop date: Limited # of times Inactive 08/28/2017 [facility] Promethazine 6.25 mg, Route: IVPB, ONCE, Dosing Weight 100.114, kg, PRN Nausea & Vomiting, Start date: 08/28/17 12:22:00 CDT Inactive 08/28/2017 [facility] 72 HR Scopolamine 0.0139 MG/HR Transdermal Patch 1 patch, Route: TOP, Drug Form: ERFILM, Dosing Weight 100.114, kg, ONCE, Apply behind ear. Avoid use in elderly., Start date: 08/28/17 12:22:00 CDT, Stop date: 08/28/17 12:22:00 CDTNotes: Change patch every 72 hours (Same as: Transderm-Scop) No Longer Active 08/28/2017 [facility] Ondansetron 4 mg, Route: IVP, ONCE, Dosing Weight 100.114, kg, PRN Nausea & Vomiting, Start date: 08/28/17 12:22:00 CDT Inactive 08/28/2017 [facility] Calcium Chloride 0.0014 MEQ/ML / Potassium Chloride 0.004 MEQ/ML / Sodium Chloride 0.103 MEQ/ML / Sodium Lactate 0.028 MEQ/ML Injectable Solution 1,000 mL, Rate: 125 ml/hr, Infuse over: 8 hr, Route: IV, Dosing Weight 100.114 kg, Total Volume: 1,000, Start date: 08/28/17 12:22:00 CDT, Duration: 30 day, Stop date: 09/27/17 12:21:00 CDT, 2.26, m2 Inactive 08/28/2017 [facility] Acetaminophen 300 MG / Codeine Phosphate 30 MG Oral Tablet [Tylenol with Codeine #3] 1 - 2 tab, PO, Q4H, PRN Pain, X 3 day, # 20 tab, 0 Refill(s) No Longer Active 08/28/2017 [facility] dexamethasone (ANES) Route: IV, Drug form: INJ, ONCE, Stop date: 08/28/17 11:32:00 CDT Inactive 08/28/2017 [facility] diphenhydrAMINE (ANES) Route: IV, Drug form: INJ, ONCE, Stop date: 08/28/17 11:32:00 CDT Inactive 08/28/2017 [facility] acetaminophen (ANES) Route: IV, Drug form: INJ, ONCE, Stop date: 08/28/17 11:27:00 CDT Inactive 08/28/2017 [facility] metoclopramide (ANES) Route: IV, Drug form: INJ, ONCE, Stop date: 08/28/17 11:27:00 CDT Inactive 08/28/2017 [facility] Amidate (ANES) Route: IV, Drug form: INJ, ONCE, Stop date: 08/28/17 11:27:00 CDT Inactive 08/28/2017 [facility] rocuronium (ANES) Route: IV, Drug form: INJ, ONCE, Stop date: 08/28/17 11:27:00 CDT Inactive 08/28/2017 [facility] ceFAZolin (ANES) Route: IV, Drug form: INJ, ONCE, Stop date: 08/28/17 11:27:00 CDT Inactive 08/28/2017 [facility] famotidine (ANES) Route: IV, Drug form: INJ, ONCE, Stop date: 08/28/17 11:27:00 CDT Inactive 08/28/2017 [facility] midazolam (ANES) Route: IV, Drug form: SOLN, ONCE, Stop date: 08/28/17 11:22:00 CDT Inactive 08/28/2017 [facility] propofol (ANES) Route: IV, Drug form: INJ, ONCE, Stop date: 08/28/17 11:22:00 CDT Inactive 08/28/2017 [facility] fentaNYL (ANES) Route: IV, Drug form: INJ, ONCE, Stop date: 08/28/17 11:22:00 CDT Inactive 08/28/2017 [facility] lidocaine (ANES) Route: IV, Drug form: INJ, ONCE, Stop date: 08/28/17 11:22:00 CDT Inactive 08/28/2017 [facility] Lactated Ringers Injection IV (ANES) 1000 mL Route: IV, Total Volume: 1,000, Start date: 08/28/17 10:21:00 CDT, Stop date: 08/28/17 11:21:00 CDT Inactive 08/28/2017 [facility] Calcium Chloride 0.0014 MEQ/ML / Potassium Chloride 0.004 MEQ/ML / Sodium Chloride 0.103 MEQ/ML / Sodium Lactate 0.028 MEQ/ML Injectable Solution 1,000 mL, Rate: 25 ml/hr, Infuse over: 40 hr, Route: IV, Dosing Weight 100.114 kg, Total Volume: 1,000, Start date: 08/28/17 8:49:00 CDT, Duration: 30 day, Stop date: 09/27/17 8:48:00 CDT, 2.26, m2 Inactive 08/28/2017 [facility] 72 HR Scopolamine 0.0139 MG/HR Transdermal Patch 1 patch, Route: TOP, Drug Form: ERFILM, Dosing Weight 100.114, kg, ONCE, Start date: 08/28/17 8:49:00 CDT, Stop date: 08/28/17 8:49:00 CDT Inactive 08/28/2017 [facility] Melatonin Bedtime, 0 Refill(s) Active 08/23/2017 [facility] Glucosamine PO, 0 Refill(s) Active 08/23/2017 [facility] Nortriptyline PO, 0 Refill(s) Active 08/23/2017 [facility] Trulicity Pen SUB-Q, 0 Refill(s) Active 08/23/2017 [facility] Esomeprazole 40 MG Enteric Coated Capsule [Nexium] 40 mg=1 cap, PO, Daily, # 30 cap, 0 Refill(s) Active 08/23/2017 [facility] clopidogrel 75 mg oral tablet 75 mg=1 tab, PO, Daily, # 30 tab, 0 Refill(s) Active 08/23/2017 [facility] Lisinopril PO, Daily, 0 Refill(s) Active 08/23/2017 [facility] metoprolol tartrate 25 mg oral tablet 25 mg=1 tab, PO, BID, # 180 tab, 0 Refill(s) Active 08/23/2017 [facility] Lipitor PO, Daily, 0 Refill(s) Active 08/23/2017 [facility] Plavix 1 tablet Orally Active 75 MG Orally Once a day [facility] 01/11/2014 Micki Sweet Nexium 1 capsule Orally Active 40 MG Orally Once a day [facility] Sweet Lizzy Unknown NA Active [facility] Glucosamine Chondroitin Complx Unknown NA Active [facility] Lipitor 1 tablet Orally Active 10 MG Orally Once a day [facility] rose Lisinopril 1 tablet Orally Active 5 MG Orally Once a [facility] Insulin Unknown NA Active [facility] med Trulicity 0.5 ml Subcutaneous Active 0.75 MG/0.5ML Subcutaneous [facility] Multi For Him 50+ Unknown NA Active [facility] Metoprolol Succinate one half tablet Orally Active 50 MG Orally twice a day [facility] Allergies, Adverse Reactions, Alerts Substance Category Reaction Severity Reaction type Status Date Reported Comments Source N.K.D.A. Adverse Reaction Info Not Available Adverse Reaction Active 03/08/2015 [facility] Immunizations No Data Provided for This Section Results No Data Provided for This Section Pathology Reports No Data Provided for This Section Diagnostic Reports Report Value Date Source Abdomen RUQ US Patient Name: ARCHANA ABDI : 1955; Age: 62 years Male MR: [id number] Study: Abdomen RUQ US 08/06/2017 11:35 AM [...] serve at 08/06/2017 2:55 PM CDT. SL: [id number] 08/06/2017 [facility] wo contrast CT EXAM: CT CHEST WITHOUT [...] ultrasound of the abdomen is recommended. 07/26/2017 [facility] 2 views DX Exam: Two-view chest x-ray [...] Comments Source Systolic (mm Hg) 120 08/28/2017 [facility] Diastolic (mm Hg) 67 08/28/2017 [facility] Respitory Rate 14 08/28/2017 [facility] Systolic (mm Hg) 100 08/28/2017 [facility] Diastolic (mm Hg) 55 08/28/2017 [facility] Respitory Rate 12 08/28/2017 [facility] Systolic (mm Hg) 106 08/28/2017 [facility] Diastolic (mm Hg) 45 08/28/2017 [facility] Respitory Rate 10 08/28/2017 [facility] BMI Calculated 30.78 08/23/2017 [facility] Weight 100.114 08/23/2017 [facility] Height 180.34 cm 08/23/2017 [facility] Temperature Oral (F) 97.9 F 08/23/2017 [facility] Heart Rate 78 08/23/2017 [facility] Weight 217 03/08/2015 Micki Sweet Heart Rate 76 03/08/2015 Micki Sweet Diastolic (mm Hg) 70 03/08/2015 Micki Sweet Systolic (mm Hg) 130 03/08/2015 Micki Sweet Encounters Location Location Details Encounter Type Encounter Number Reason For Visit Attending Provider ADM Date DC Date Status Source Micki Sweet MD, PA f/u 2 [facility] [id number] 03/08/2015 03/08/2015 Micki Sweet [facility] [place] [facility] [id number] Carissa Saturday07/17/2017 07/18/2017 LISA Camachoadena [facility] [place] [facility] [id number] Chaka Andrea 07/24/2017 07/25/2017 LISA Morrisa [facility] [place] [facility] [id number] Chaka Andrea 07/26/2017 07/27/2017 [facility] [id number] Obonoruma Ekhaese 08/06/2017 08/07/2017 [facility] [id number] [place] Ekhaese 08/28/2017 08/28/2017 [facility] Procedures Procedure Code Date Perfomer Comments Source Placement of stent in cardiac conduit [id number] 02/11/2015 [facility] Arthroscopy of knee [id number] [facility] Arthroscopy of shoulder [id number] [facility] Cardiac catheterization [id number] [facility] Implantation of automatic cardiac defibrillator [id number] [facility] Implantation of cardiac pacemaker [id number] [facility] Operation [id number] [facility] Assessment and Plan No Data Provided for This Section Plan of Care No Data Provided for This Section Social History Social History Date Source Social History TypeResponse Substance Abuse Use: None. Alcohol Past, Previous treatment: None. Smoking Status Never smoker; Exposure to Tobacco Smoke None; Cigarette Smoking Last 365 Days No; Reg Smoking Cessation Counseling No entered on: 08/28/17 08/23/2017 [facility] No data available for this section 07/27/2017 [facility] [place] No data available for this section 07/25/2017 [...]
--- OUTSIDE RECORDS SUMMARY | 2018-10-01 21:19 | XMS REPORT ---
Author Author [facility] Address Unknown Phone Unavailable Care Team Providers Care Overedge Sewer Name Role Phone Jey ROLLINS Unavailable Unavailable Problems This patient has no known problems. Allergies, Adverse Reactions, Alerts This patient has no known allergies or adverse reactions. Medications This patient has no known medications. Results Test Description Test Time Test Comments Text Results Atomic Results Result Comments CT ABDOMEN/PELVIS W 2018-10-01 20:21:00 [facility] [address] [place], [place] [id number] Patient Name: ARCHANA ABDI MR #: [id number] : 1955 Age/Sex: 63/M Req #: [id number] Adm Physician: Ordered by: BRENDA VERDIN NP Report #: [id number] Location: ER Room/Bed: Procedure: [id number] CT/CT ABDOMEN/PELVIS W Exam Date: 10/01/18 Exam Time: 1951 REPORT STATUS: Signed EXAM: CT Abdomen and Pelvis WITH contrast INDICATION: diarrhea/ abd pain 20181001 COMPARISON: None available. TECHNIQUE: Abdomen and pelvis were scanned utilizing a multidetector helical scanner from the lung base to the pubic symphysis after administration of IV contrast. Coronal and sagittal reformations were obtained. Dose modulation, iterative reconstruction, and/or weight based adjustment of the mA/kV was utilized to reduce the radiation dose to as low as reasonably achievable. Routine protocol was performed. Scan was performed when during portal venous phase. IV CONTRAST: 100 mL of Isovue-370 ORAL CONTRAST: Water COMPLICATIONS: None RADIATION DOSE: Total DLP: 789.62 mGy*cm Estimated effective dose: (DLP x 0.015 x size factor) mSv CTDIvol has been reviewed. It is below the limits set by the Radiation Protocol Committee (RPC). FINDINGS: LINES and TUBES: Distal leads of cardiac device are visualized. LOWER THORAX: Bibasilar atelectasis/scarring. Partially seen atherosclerotic aspiration of coronary arteries. HEPATOBILIARY: No focal hepatic lesions. No biliary ductal dilation. GALLBLADDER: Surgically absent. SPLEEN: No splenomegaly. Calcified granuloma. PANCREAS: No focal masses or ductal dilatation. Minimal peripancreatic fat stranding. ADRENALS: No adrenal nodules KIDNEYS/URETERS: Kidneys enhance symmetrically. No hydronephrosis. Left renal inferior pole scarring and cortical calcification. There is also small focus of right renal superior pole cortical scarring. No stones. GI TRACT: No abnormal distention or evidence of bowel obstruction. Mild wall thickening of the second portion of duodenum and adjacent fat stranding. Appendix is normal. PELVIC ORGANS/BLADDER: Bladder wall thickening. LYMPH NODES: No lymphadenopathy. VESSELS: There is mild atherosclerotic disease in the aorta and major arterial branches. PERITONEUM / RETROPERITONEUM: No free air. Trace dependent ascites. BONES: Unremarkable. SOFT TISSUES: Left buttock injection granulomas. Anterior abdominal wall mild skin thickening and stranding. IMPRESSION: 1. Mild peripancreatic fat stranding, concerning for acute pancreatitis. There is also wall thickening of the second portion of duodenum and mild adjacent fat stranding, which could be reactive due to pancreatitis or represent mild duodenitis. 2. Bladder wall thickening, could represent cystitis. Correlation with urinalysis. Signed by: Dr. Shayne Alvarado MD on 10/01/2018 8:43 PM Dictated By: SHAYNE ALVARADO MD 42 Transcribed By: BELLA on 10/01/182042 COPY TO: BRENDA VERDIN NP
[2018-10-01] MEDS: SODIUM CHLORIDE 0.9% 1000ML 1,000 ML IV SCH (21:28)
[2018-10-01] MEDS: PIPER-TAZ 3.375 GM 50 ML IV SCH (22:00)
[2018-10-01] MEDS ORDERED: IOPAMIDOL 370 MG/ML 200 ML INFUS..BTL INJ ONE (22:22)
[2018-10-01] MEDS ORDERED: SODIUM CHLORIDE 0.9% 50ML 50 ML ONE (22:22)
[2018-10-01] MEDS: HYDROMORPHONE 1MG/1ML INJ IV PRN (22:47)
[2018-10-01] MEDS: INSULIN REGULAR, HUMAN 100 UNIT/1 ML 3ML VIAL SQ SCH (22:51)
[2018-10-01 23:05] LABS: BILIRUBIN,URINE NEGATIVE (NEGATIVE); CLARITY,URINE CLEAR (CLEAR); COLOR,URINE YELLOW (YELLOW); KETONES,URINE NEGATIVE (NEGATIVE); LEUKOCYTE ESTERASE ,URINE NEGATIVE (NEGATIVE); NITRITE,URINE NEGATIVE (NEGATIVE); PROTEIN,URINE DIPSTICK NEGATIVE (NEGATIVE); URINE UROBILINOGEN 0.2 mg/dL (0.2 - 1)
[2018-10-01 23:17] LABS: BACTERIA,URINE FEW /HPF; EPITHELIAL CELLS,URINE FEW /LPF; WBC,URINE (MAN) 0-5 /HPF (0-5)
[2018-10-02] VITALS (10 sets, daily range): BP systolic 124–148; BP diastolic 61–65
--- NOTE | 2018-10-02 02:02 | NUR ---
PTIS TRANSFERRED FROM ER .PT IS AOX3 .DX PANCREATITIS ,DIARRHEA AND INCREASED LFT .SKIN WARM AND DRY TO TOUCH .TOES OF RT FOOT ARE AMPUTATED.PT C/O PAIN .IV LT WRIST 18G NS AT 200 ML/HR .FAMILY AT THE BEDSIDE .CALL LIGHT WITH REACH .CONTINUE TO MONITOR
[2018-10-02] MEDS: SODIUM CHLORIDE 0.9% 1000ML 1,000 ML IV SCH (04:11)
[2018-10-02 05:51] LABS: BASOPHILS % 0.1 % (0.0-1.0); EOSINOPHILS % 0.3 % (0.0-6.0); HEMATOCRIT 41.3 % (38.2-49.6); HEMOGLOBIN 14.4 g/dL (14.0-18.0); LYMPHOCYTES # (AUTO) 0.3 (1.0-3.2); LYMPHOCYTES % 2.1 % (18.0-39.1); MEAN CORPUSCULAR HEMOGLOBIN 29.4 pg (28-32); MEAN CORPUSCULAR HGB CONC 34.9 g/dL (31-35); MEAN CORPUSCULAR VOLUME 84.5 fL (81-99); MONOCYTES # (AUTO) 1.1 (0.2-0.8); MONOCYTES % 7.6 % (4.4-11.3); NEUTROPHILS # (AUTO) 12.1 (2.1-6.9); NEUTROPHILS % 85.9 % (38.7-80.0); PLATELET COUNT 97 x10e3/uL (140-360); RED BLOOD COUNT 4.89 x10e6/uL (4.3-5.7); RED CELL DISTRIBUTION WIDTH 13.7 % (11.7-14.4)
[2018-10-02] MEDS ORDERED: METRONIDAZOLE 500MG/NS 100ML 100 ML IV SCH (06:00)
[2018-10-02] MEDS: PIPER-TAZ 3.375 GM 50 ML IV SCH ×3 (06:09→22:03)
[2018-10-02 06:24] LABS: ALANINE AMINOTRANSFERASE 133 IU/L (0-55); ALBUMIN 2.4 g/dL (3.5-5.0); ALBUMIN/GLOBULIN RATIO 0.9 (0.8-2.0); ALKALINE PHOSPHATASE 178 IU/L (40-150); ANION GAP 8.7 mmol/L (8-16); BLOOD UREA NITROGEN 25 mg/dL (7-26); BUN/CREATININE RATIO 24 (6-25); CALCIUM 8.1 mg/dL (8.4-10.2); CARBON DIOXIDE 28 mmol/L (22-29); CHLORIDE 98 mmol/L (98-107); CREATININE, SERUM 1.06 mg/dL (0.72-1.25); EST GLOMERULAR FILTRATION RATE > 60 ML/MIN (60-); POTASSIUM 3.7 mmol/L (3.5-5.1); SODIUM 131 mmol/L (136-145)
[2018-10-02 06:28] LABS: GLUCOSE 59 mg/dL (74-118)
[2018-10-02 06:38] LABS: AMYLASE 222 U/L (25-125); LIPASE 121 U/L (8-78)
--- NOTE | 2018-10-02 07:10 | NUR ---
BS IS 57 AND GIVEN D50 .PT RESTING .CONTINUE TO MONITOR .BEDSIDE REPORT GIVEN TO THE ON COMING NURSE
[2018-10-02 07:20] LABS: LYMPHOCYTES % (MANUAL) 5 % (19-48); MONOCYTES % (MANUAL) 8 % (3.4-9.0); NEUTROPHILS % (MANUAL) 87 % (40-74); PLATELET ESTIMATE MARKEDLY DECREASED; RBC MORPHOLOGY COMMENT NORMAL
[2018-10-02] MEDS: HYDROMORPHONE 1MG/1ML INJ IV PRN ×4 (08:24→22:03)
[2018-10-02] MEDS ORDERED: ACETAMINOPHEN 325 MG TAB PO PRN (08:45)
[2018-10-02] MEDS ORDERED: ATORVASTATIN 20 MG TAB PO SCH (09:00)
[2018-10-02] MEDS: PANTOPRAZOLE SOD 40 MG TABEC PO SCH (10:00)
[2018-10-02] MEDS ORDERED: DEXTROSE 50% SYRINGE 50 ML IV PRN (10:30)
[2018-10-02] MEDS ORDERED: IBUPROFEN 600 MG TAB PO PRN (10:30)
[2018-10-02 11:02] LABS: CHOL/HDL RATIO 3.3 (3.9-4.7)
[2018-10-02 11:24] LABS: THYROID STIMULATING HORMONE 0.331 uIU/mL (0.350-4.940)
[2018-10-02] MEDS: LISINOPRIL 2.5 MG TAB PO SCH (11:30)
[2018-10-02] MEDS: DICYCLOMINE HCL 10 MG CAP PO PRN ×2 (11:30→22:24)
[2018-10-02] MEDS: INSULIN REGULAR, HUMAN 100 UNIT/1 ML 3ML VIAL SQ SCH ×3 (11:30→20:30)
[2018-10-02] MEDS: CLOPIDOGREL BISULFATE 75 MG TAB PO SCH (11:30)
[2018-10-02] MEDS: ASPIRIN 81 MG CHEW TAB PO SCH (11:30)
[2018-10-02] MEDS: METOPROLOL SUCCINATE 25 MG TAB XL PO SCH ×2 (11:30→17:17)
--- NOTE | 2018-10-02 11:49 | History and Physical ---
CHIEF COMPLAINT: Abdominal pain. HISTORY OF PRESENT ILLNESS: This is a 63-year-old male, who has had right lower extremity TMA in the past with IV antibiotic therapy leading to C difficile colitis, hyperlipidemia, acid reflux, hypertension, presents to the emergency department with complaints of abdominal pain epigastrically, that has been ongoing for the last 2-3 days. The patient reports that he is currently being treated for C difficile colitis on oral vancomycin at home. He was following up with Infectious Disease Dr. Nguyễn. He now reports of worsening abdominal pain, decreased oral intake, nausea, vomiting, and dehydration. Imaging studies performed here in the emergency room shows evidence of acute pancreatitis. He does report having a cholecystectomy in the past. The patient is seen and evaluated at bedside on the medical floor. He is currently doing well with no other issues at this time. Vital signs were stable when I evaluated him. I reviewed the plan of care with the nursing staff and the patient. REVIEW OF SYSTEMS: Pertinent positives: Epigastric abdominal pain, decreased oral intake, nausea, and vomiting. Pertinent negatives: Denies any chest pain, palpitation, dysuria, hematuria, frequency, urgency, lightheadedness, dizziness, headaches, shortness of breath, cough, congestion, fever, or any other complaints. The rest of 14-point review of systems are reviewed with the patient and are negative. ALLERGIES: ACETAMINOPHEN AND HYDROCODONE. HOME MEDICATIONS: He takes: 1. Aspirin 81 mg daily. 2. Lipitor 10 mg daily. 3. Plavix 75 mg daily. 4. Dicyclomine 10 mg p.o. q.4 hours p.r.n. for diarrhea. 5. Nexium 40 mg daily. 6. Lisinopril 2.5 mg daily. 7. Metoprolol ER 25 mg p.o. b.i.d. 8. Vancomycin 250 mg capsule p.o. q.6 hours. 9. He also takes Trulicity 1.5 mg injection weekly. 10. NPH regular insulin 70/30. He did not provide the units. 11. Pepcid 20 mg daily. PAST MEDICAL HISTORY: He has history of C difficile colitis. He had a TMA in the right foot due to diabetes, hypertension, acid reflux, irritable bowel syndrome, hyperlipidemia, type 2 diabetes. PAST SURGICAL HISTORY: He had a right foot TMA. He had multiple debridements in the past. FAMILY HISTORY: Hypertension and diabetes. SOCIAL HISTORY: No drugs. No alcohol. Does not smoke. Good social support. PHYSICAL EXAMINATION: VITAL SIGNS: Temperature is 99.8, pulse 96, respiratory rate is 18, blood pressure 138/63, and pulse ox 94% on room air. GENERAL: Not in acute distress. Alert and oriented x3. Cooperative on examination. HEENT: Head; normocephalic, atraumatic. Eyes; pupils are equal, round, and reactive to light bilaterally. Extraocular movements intact bilaterally. Throat; no evidence of erythema or exudates in the posterior pharynx. Has poor dentition. NECK: Supple. Good range of motion. PULMONARY: Clear to auscultation bilaterally. No wheezing, no rales, no rhonchi, no crackles appreciated. CARDIOVASCULAR: Positive S1 and S2. No murmurs, rubs, or gallops appreciated. ABDOMEN: Soft, nondistended. He is tender to palpation in the epigastric region. Bowel sounds present. MUSCULOSKELETAL: Strength is 5/5 throughout. No evidence of any muscle deficits on examination. No weakness appreciated. NEUROLOGIC: Cranial nerve II through XII grossly intact. No evidence of any neurological deficits on exam. SKIN: Intact. Warm to touch. Good cap refill. PSYCHIATRIC: Normal affect and mood. EXTREMITIES: No edema. Good range of motion throughout. LABORATORY FINDINGS: Show white count on admission was 19.1, now 14, hemoglobin is 14.4, hematocrit is 41, and platelets of 97. Sodium 131, potassium 3.7, chloride 98, bicarb 20, anion gap of 8.7, BUN is 25, creatinine is 1, glucose is 59, calcium is 8.1. His LFTs; total bilirubin is 3.1, AST 40, ALT 133, alkaline phosphatase 178, total protein 5.1, amylase was 49, now 222, lipase was 341, now is 121. Albumin is 2.7. Urinalysis was negative. MICROBIOLOGY: None. IMAGING STUDIES: CT abdomen and pelvis consistent with mild peripancreatic fat stranding concerning for acute pancreatitis. There is also wall thickening of the second portion of the duodenum and mild adjacent fat stranding, which could be pancreatitis or represent mild duodenitis. Bladder wall thickening could represent cystitis. Correlate with the urinalysis. IMPRESSION: 1. Acute pancreatitis with underlying duodenitis seen on imaging studies. 2. History of Clostridium difficile colitis, currently on treatment with leukocytosis. 3. Type 2 diabetes. 4. Acute kidney injury secondary to dehydration. 5. Hypertension. 6. History of congestive heart failure with systolic dysfunction. PLAN: At this time, imaging studies consistent with duodenitis and pancreatitis. Start on IV antibiotics and get GI consultation. He does not have a gallbladder according to the reports and according to the patient. He is not a candidate for MRCP as he has a pacer. Due to the fact that he has a history of C difficile colitis and currently on treatment, I will go ahead and put him back on his oral vancomycin and consult Infectious Disease. His white count was elevated on admission, but downtrended. We will repeat labs in the morning. Put on insulin sliding scale, Accu-Cheks, A1c. Continue with IV fluids for acute kidney injury as well as dehydration. Resume same antihypertensive medications. He is currently on a high amounts of fluid, which in this patient with heart failure may be an issue, but we will try our best to follow this appropriately with all the consultants. GI and Cardiology have been consulted as well. We will get labs, lipid panel, A1c, TSH. Put on morphine for pain. Change his IV fluids to D5 NS. Put him on Motrin p.r.n. for pain and fever. Follow up with consultants, GI, Cardiology and Infectious Disease otherwise. MD ARACELI Yancey/AKANKSHA /[id number]
[2018-10-02] MEDS: DEXTROSE 5%/0.9% SOD CHL 1,000 ML IV SCH ×2 (12:31→20:59)
[2018-10-02] MEDS: VANCOMYCIN 250MG/5ML ORAL SOLN PO SCH ×3 (12:33→23:17)
--- NOTE | 2018-10-02 14:40 | Consultation ---
DATE OF CONSULTATION: REASON FOR CONSULTATION: Pancreatitis. HISTORY OF PRESENT ILLNESS: Thank you so much to see this patient. This patient, who is very pleasant known to me from previous admission. The patient apparently was in his usual state of health until about a month ago when he had shortness of breath and pain on the left side. He went to see Dr. Andrea, his primary care physician, who diagnosed him with pneumonia. He gave him Levaquin for 10 days. The patients' breathing got better, but he started to have abdominal pain, epigastric pain, and not feeling well. He went back to see Dr. Andrea again and this time, he gave him Zyvox for 10 days 60 mg p.o. b.i.d., but his symptoms started to get worse. He still have diarrhea and his pain became worse, so he came here. He started to have diarrhea and abdominal pain, so Dr. Andrea gave him oral vancomycin. There was no test done. But because of worsening pain, he came here. The patient came to the hospital, had a CAT scan, which showed pancreatitis. He was started on Zosyn or vancomycin. He had one explosive bowel movement yesterday, but today, there is no diarrhea since this morning, but he is having abdominal pain. I was asked to see him. He was also feeling feverish. When he first came, his blood pressure was also low and tachycardic. PAST MEDICAL HISTORY: Diabetes mellitus, hypertension, coronary artery disease, status post AICD. PAST SURGICAL HISTORY: AICD. ALLERGIES: NKA. SOCIAL HISTORY: There is no smoking, drug abuse, or alcohol abuse. FAMILY HISTORY: Hypertension. REVIEW OF SYSTEMS: At present time, abdominal pain, not feeling well. GENERAL: Feeling feverish. There is no more diarrhea. There is some nausea. : Negative. GI: Negative. SKIN: There is no rash. Otherwise all symptoms within normal limit. PHYSICAL EXAMINATION: GENERAL: He is currently alert and oriented. Does not seem to be in acute distress. VITAL SIGNS: Stable. Afebrile. Temperature 99.3. HEENT: Normocephalic. Not icteric. NECK: Supple. No JVD. No lymphadenopathy. No thyromegaly. CHEST: Clear bilateral. HEART: S1 and S2. No S3, S4, or murmur. ABDOMEN: Soft. Bowel sounds present. He did have some diffuse epigastric discomfort. EXTREMITIES: No edema. SKIN: There is no rash. JOINTS: There is no erythema or edema. His blood pressure is coming up to 135/67. LABORATORY DATA: His laboratory data reviewed. His sodium is 130, potassium 3.7, creatinine 1.06, and glucose of 59. AST 40, ALT 133, and his bilirubin was 3.1. Amylase 222 and lipase 121. His white count on admission was 19.18, hemoglobin 16, hematocrit 46, and platelet of 125. Today, white count 14.05 and platelet is 97. IMPRESSION: 1. Pancreatitis on admission, concern if a drug-related. It seems probably related to Levaquin, although it is unusual for Levaquin to lead to pancreatitis, but has been reported. I am concerned that the bilirubin is elevated, concern this is obstruction versus other. I would recommend to do MRCP. Also, obtain a chest x-ray, chest CT. 2. Sepsis, on admission, probably pancreatitis. 3. Concerns old drug-related. 4. Diarrhea, resolved. I am not so sure if he have Clostridium difficile colitis. No test was done and now there is no more diarrhea, so I think we have to finish oral vancomycin. 5. History of diabetes, history of coronary artery disease, and peripheral vascular disease. Discussed with the . Discussed with the patient. We will discuss with GI. We will follow. MD SANDRA Hadley/AKANKSHA /[id number]
--- NOTE | 2018-10-02 17:30 | NUR ---
Nutrition Screen Note RD Recommendation for Physician: -Rec advancing to low fat/ ADA 1800 diet as tolerated Plan of Care: RD following, monitoring for tolerance and adequacy Nutrition reason for involvement: Nutrition Risk Trigger MST Primary Diagnose(s): Pancreatitis on admission, concern if a drug-related PMH: C diff, DM, HTN, acid reflux, IBS, HLD, DM Ht: 70in Wt: 206lb BMI: 29.6kg/m2 IBW: 166lb +/- 10% RD Assessment: (10/02/18) Chart reviewed. Labs and meds reviewed. 63yo M, who was admitted for abdominal pain and diarrhea. Abd/pel CT showed pancreatitis. Lipase at 121 and amylase at 222. Visited pt in the room. Pt was sleeping. on bedside to provide info. 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 Currently receiving Dilaudid for pain management. No episode of nausea or vomiting. Diarrhea has stopped. No chewing or swallowing difficulty reported. Weight has been stable, per . Will continue to monitor and follow. Current Diet: NPO Malnutrition Evaluation (10/02/2018) The patient does not meet criteria for a specified degree of malnutrition at this time. Will re-evaluate at follow-up as appropriate. Diet Education Needs Assessment: Diet education indicated, will return when pt is awake. Nutrition Care Level: low Signed: Moriah Laird, MS, RD, LD
--- NOTE | 2018-10-02 17:42 | Consultation ---
DATE OF CONSULTATION: 10/02/2018 Cardiology consultation REQUESTING PHYSICIAN: Jatin Clark M.D. REASON FOR CONSULTATION: Management of cardiac conditions. HISTORY OF PRESENT ILLNESS: This is a 63-year-old gentleman with history of peripheral arterial disease, status post right TMA; chronic systolic heart failure, status post BiV-ICD; coronary artery disease with prior PCI x2; hypertension; hyperlipidemia; and diabetes mellitus, who presents with complaints of abdominal pain. The patient had been having abdominal pain for 2-3 days and was being treated for C diff. He especially had worsening abdominal pain, decreased oral intake, nausea, and vomiting and presented to the ER for further evaluation. CT of the abdomen and pelvis suggested acute pancreatitis. The patient was admitted for further evaluation and management. Cardiology was consulted to manage the patient's cardiac conditions. The patient denies any cardiac symptoms. He denies chest pain, shortness of breath, palpitations, edema, orthopnea, PND, or lightheadedness. REVIEW OF SYSTEMS: Negative except as per HPI. PAST MEDICAL HISTORY: As above. PAST SURGICAL HISTORY: 1. Right TMA. 2. Right ankle surgery. 3. Left leg surgery. 4. Left shoulder surgery. SOCIAL HISTORY: Denies tobacco, alcohol, or illicit drugs. FAMILY HISTORY: Pertinent for mother of myocardial infarction. ALLERGIES: PLEASE SEE EMR. MEDICATIONS: Please see medication list. PHYSICAL EXAMINATION: VITAL SIGNS: Temperature 96.2 degrees, pulse 88, respiratory rate 18, blood pressure 133/63, and oxygen saturation 96%. GENERAL: Awake, alert, well developed, well nourished. HEENT: Normocephalic, atraumatic. Pupils equal. No scleral icterus. NECK: Supple. No thyromegaly or cervical lymphadenopathy. No carotid bruits. LUNGS: Clear to auscultation bilaterally. No wheezes or crackles. CARDIOVASCULAR: Normal rate, regular rhythm. Normal S1, S2. ABDOMEN: Soft, nontender. EXTREMITIES: No edema. NEUROLOGIC: Nonfocal exam. LABORATORY DATA: WBCs 14.05, hemoglobin 14.4, hematocrit 41.3, and platelets 97. Sodium 131, potassium 3.7, chloride 98, CO2 of 28, BUN 25, and creatinine 1.06. Cholesterol 75, LDL 38, HDL 23, and triglycerides 72. Telemetry, V-paced. IMPRESSION: 1. Acute pancreatitis. 2. Clostridium difficile colitis. 3. Coronary artery disease, status post percutaneous coronary intervention x2. 4. Chronic systolic heart failure, status post BiV-ICD. 5. Hypertension and hyperlipidemia. 6. Peripheral artery disease, status post right TMA. 7. Diabetes mellitus. 8. Acute kidney injury, improved. RECOMMENDATIONS: Antibiotics per Infectious Disease. Monitor the patient closely on telemetry. Continue home cardiac medications. We will watch volume status closely given IV fluids for acute kidney injury and pancreatitis. He may need IV diuretics to maintain volume status. We will watch closely. Thank you for this consult. We will continue to follow. Camila Hicks MD ABS/MODL /[id number]
[2018-10-02] MEDS: ATORVASTATIN 10 MG TAB PO SCH (20:29)
[2018-10-03] VITALS: BP 122/60
[2018-10-03] MEDS: TRAMADOL HCL 50 MG TAB PO PRN ×3 (01:50→21:28)
[2018-10-03] MEDS: HYDROMORPHONE 1MG/1ML INJ IV PRN ×5 (02:10→23:35)
[2018-10-03 04:00] VITALS: BP 139/65
[2018-10-03] MEDS: DEXTROSE 5%/0.9% SOD CHL 1,000 ML IV SCH (05:02)
[2018-10-03] MEDS: VANCOMYCIN 250MG/5ML ORAL SOLN PO SCH ×3 (06:14→17:36)
[2018-10-03] MEDS: PIPER-TAZ 3.375 GM 50 ML IV SCH ×3 (06:14→21:50)
[2018-10-03 06:15] LABS: BASOPHILS % 0.3 % (0.0-1.0); EOSINOPHILS # (AUTO) 0.3 (0.0-0.4); HEMOGLOBIN 12.2 g/dL (14.0-18.0); LYMPHOCYTES # (AUTO) 0.5 (1.0-3.2); LYMPHOCYTES % 4.3 % (18.0-39.1); MEAN CORPUSCULAR HEMOGLOBIN 29.1 pg (28-32); MEAN CORPUSCULAR HGB CONC 33.9 g/dL (31-35); MEAN CORPUSCULAR VOLUME 85.9 fL (81-99); MONOCYTES # (AUTO) 0.7 (0.2-0.8); MONOCYTES % 6.6 % (4.4-11.3); NEUTROPHILS # (AUTO) 8.8 (2.1-6.9); NEUTROPHILS % 84.5 % (38.7-80.0); PLATELET COUNT 87 x10e3/uL (140-360); RED BLOOD COUNT 4.19 x10e6/uL (4.3-5.7); RED CELL DISTRIBUTION WIDTH 13.7 % (11.7-14.4)
[2018-10-03] MEDS: PANTOPRAZOLE SOD 40 MG TABEC PO SCH (06:26)
[2018-10-03 06:32] LABS: ALANINE AMINOTRANSFERASE 80 IU/L (0-55); ALBUMIN 2.1 g/dL (3.5-5.0); ALBUMIN/GLOBULIN RATIO 0.8 (0.8-2.0); ALKALINE PHOSPHATASE 131 IU/L (40-150); AMYLASE 51 U/L (25-125); ANION GAP 9.6 mmol/L (8-16); BLOOD UREA NITROGEN 19 mg/dL (7-26); BUN/CREATININE RATIO 22 (6-25); CALCIUM 7.7 mg/dL (8.4-10.2); CARBON DIOXIDE 26 mmol/L (22-29); CHLORIDE 100 mmol/L (98-107); CREATININE, SERUM 0.86 mg/dL (0.72-1.25); EST GLOMERULAR FILTRATION RATE > 60 ML/MIN (60-); GLUCOSE 197 mg/dL (74-118); POTASSIUM 3.6 mmol/L (3.5-5.1); SODIUM 132 mmol/L (136-145)
--- NOTE | 2018-10-03 07:00 | NUR ---
received am report from SCOTT Kenny and morning rounds done. pt is in the restroom, requires no assistance. pt is alert and responding to verbal prompts. call light is on the pt's bed. pt instructed to pull red cord in bathroom if help is needed.
[2018-10-03] MEDS: INSULIN REGULAR, HUMAN 100 UNIT/1 ML 3ML VIAL SQ SCH ×4 (07:30→21:20)
[2018-10-03 07:37] VITALS: BP 128/68
[2018-10-03 07:54] VITALS: BP 128/68
[2018-10-03] MEDS: METOPROLOL SUCCINATE 25 MG TAB XL PO SCH ×2 (08:42→17:35)
[2018-10-03] MEDS: LISINOPRIL 2.5 MG TAB PO SCH (08:42)
[2018-10-03] MEDS: ASPIRIN 81 MG CHEW TAB PO SCH (08:42)
[2018-10-03] MEDS: CLOPIDOGREL BISULFATE 75 MG TAB PO SCH (08:42)
[2018-10-03 11:38] VITALS: BP 131/77
[2018-10-03 12:19] LABS: EOSINOPHILS % (MANUAL) 3 % (0-7); LYMPHOCYTES % (MANUAL) 3 % (19-48); MONOCYTES % (MANUAL) 7 % (3.4-9.0); NEUTROPHILS % (MANUAL) 87 % (40-74)
[2018-10-03 12:20] LABS: PLATELET ESTIMATE MARKEDLY DECREASED; RBC MORPHOLOGY COMMENT NORMAL
--- NOTE | 2018-10-03 12:39 | NUR ---
SPOKE WITH CRYSTAL FROM CT; THE RADIOLOGIST SPOKE WITH DR. GARCIA'S GRANT LEON, AND THE CT'S Addendum: 10/03/18 at 1241 by Mica Matthew RN SPOKE WITH CRYSTAL FROM CT; THE RADIOLOGIST SPOKE WITH GRANT PATTEN, AND THE CT THAT WAS ORDERED WILL BE SCHEDULED OUTPATIENT. THE BUSINESS DEVELOPMENT REPRESENTATIVE WILL SPEAK WITH PATIENT ABOUT WHEN HE WANTS TO SCHEDULE
--- NOTE | 2018-10-03 12:50 | Progress Note ---
DATE: 10/03/2018 Medicine Progress Note SUBJECTIVE: The patient states doing well today. He has no abdominal pain. He does report having some lower back pain. He reports that this occurred just prior to coming to the hospital. I also discussed this with the , who was at his bedside. PHYSICAL EXAMINATION: VITAL SIGNS: Temperature 98.2, pulse 73, respiratory rate is 20, blood pressure 129/68, pulse ox 94% on room air. GENERAL: Not in acute distress. Alert and oriented x3. Cooperative on examination. HEENT: Head; normocephalic, atraumatic. Eyes; pupils are equal, round, and reactive to light bilaterally. Extraocular movements intact bilaterally. Throat; no evidence of erythema or exudates in the posterior pharynx. Has poor dentition. NECK: Supple. Good range of motion. PULMONARY: Clear to auscultation bilaterally. No wheezing, no rales, no rhonchi, no crackles appreciated. CARDIOVASCULAR: Positive S1 and S2. No murmurs, rubs, or gallops appreciated. ABDOMEN: Soft, nondistended, nontender to palpation. Bowel sounds present. MUSCULOSKELETAL: Strength is 5/5 throughout. No evidence of any muscle deficits on examination. No weakness appreciated. NEUROLOGIC: Cranial nerve II through XII grossly intact. No evidence of any neurological deficits on exam. SKIN: Intact. Warm to touch. Good cap refill. PSYCHIATRIC: Normal affect and mood. EXTREMITIES: No edema. Good range of motion throughout. LABORATORY DATA: Lab findings show white count is 10.4, hemoglobin 12, hematocrit 36, platelets of 87. Chemistry; sodium 132, potassium 3.6, chloride 100, bicarb 26, anion gap of 9.6, BUN is 19, creatinine 0.86, glucose is 197, AST 25, ALT 80, T bilirubin is 2, calcium is 7.7, albumin 2.1, lipase is 26. C. difficile toxin is pending. Microbiology, none. Lumbar x-ray ordered. IMPRESSION: 1. Acute pancreatitis with duodenitis seen on imaging studies, pending GI recommendations. 2. History of Clostridium difficile colitis, pending Clostridium difficile toxin on treatment. ID following. 3. Type 2 diabetes. 4. Acute kidney injury secondary to dehydration. 5. Hypertension. 6. History of congestive heart failure with systolic dysfunction. 7. Lower back pain. PLAN: At this time stop IV fluids, pending GI recommendations. Still pending stool toxin for C diff. Continue with oral vancomycin. Follow ID recommendations. We will order a lumbar x-ray, because he continued to complain of pain, but it feels more like it is musculoskeletal in nature as I palpate around the muscle aspect of his lower back. There is pain there but nothing on the spine, but we will go ahead and order that. Continue with pain control. It seems like he may have had a muscle strain, but we will monitor that closely. We are going to advance his diet from clear liquid to advance to regular. He is on insulin sliding scale, Accu-Cheks. His renal function is much improved. Follow the disaster recovery consultant's recommendations; GI, Cardiology, and Infectious Disease. No workup needed by Cardiology. ID will continue to follow on the C difficile toxin and GI. Await further recommendations, but it seems like he is improving tremendously. Otherwise, we will continue same plan of care. Monitor closely. MD ARACELI Yancey/AKANKSHA /[id number]
--- NOTE | 2018-10-03 12:56 | NUR ---
EDUCATED ABOUT IMM, SIGNED, FILED IN CHART, WITH COPY LEFT WITH FAMILY AT BEDSIDE.
--- NOTE | 2018-10-03 13:57 | Progress Note ---
DATE: 10/03/2018 Cardiology Progress Note SUBJECTIVE: The patient denies chest pain or shortness of breath. OBJECTIVE: VITAL SIGNS: Temperature 98.2 degrees, pulse 72, respiratory rate 20, blood pressure 128/60, oxygen saturation 94% on room air. GENERAL: Awake, alert, in no acute distress. LUNGS: Clear to auscultation bilaterally. No wheezes or crackles. CARDIOVASCULAR: Normal rate. Regular rhythm. No murmur. Normal S1, S2. ABDOMEN: Soft and nontender. EXTREMITIES: No edema. CARDIAC MEDICATIONS: Metoprolol succinate 25 mg p.o. b.i.d., lisinopril 5 mg p.o. daily, Plavix 75 mg p.o. daily, aspirin 81 mg p.o. daily, atorvastatin 10 mg p.o. at bedtime. LABORATORY DATA: WBC 10.4, hemoglobin 12.2, hematocrit 36, platelets 87. Sodium 132, potassium 3.6, chloride 100, CO2 of 26, BUN 19, and creatinine 0.86. TELEMETRY: V paced. IMPRESSION: 1. Acute pancreatitis. 2. Clostridium difficile colitis. 3. Coronary artery disease, status post PCI x2. 4. Chronic systolic heart failure status post BiV ICD. 5. Hypertension and hyperlipidemia. 6. Peripheral arterial disease status post right TMA. 7. Diabetes mellitus. 8. Acute kidney injury, improved. RECOMMENDATIONS: Antibiotics per Infectious Disease. Monitor the patient closely on telemetry. Continue current cardiac medications. We will monitor volume status due to his history of chronic systolic heart failure. No further cardiac evaluation is indicated at this time. Thank you for this consult. We will continue to follow. Camila Hicks MD ABS/MODL /[id number]
[2018-10-03 19:44] VITALS: BP 124/61
[2018-10-03] MEDS: ATORVASTATIN 10 MG TAB PO SCH (21:27)
[2018-10-03] MEDS: LIDOCAINE 5% PATCH TP PRN (22:00)
[2018-10-04] MEDS: VANCOMYCIN 250MG/5ML ORAL SOLN PO SCH ×3 (00:05→12:34)
[2018-10-04 00:53] VITALS: BP 115/65
[2018-10-04] MEDS: TRAMADOL HCL 50 MG TAB PO PRN (04:07)
[2018-10-04 04:35] VITALS: BP 115/59
[2018-10-04] MEDS: PIPER-TAZ 3.375 GM 50 ML IV SCH ×2 (05:50→14:00)
[2018-10-04 06:08] LABS: BASOPHILS % 0.3 % (0.0-1.0); EOSINOPHILS # (AUTO) 0.2 (0.0-0.4); EOSINOPHILS % 2.3 % (0.0-6.0); HEMATOCRIT 35.3 % (38.2-49.6); HEMOGLOBIN 11.9 g/dL (14.0-18.0); LYMPHOCYTES # (AUTO) 0.5 (1.0-3.2); LYMPHOCYTES % 5.3 % (18.0-39.1); MEAN CORPUSCULAR HEMOGLOBIN 28.7 pg (28-32); MEAN CORPUSCULAR HGB CONC 33.7 g/dL (31-35); MEAN CORPUSCULAR VOLUME 85.3 fL (81-99); MONOCYTES # (AUTO) 0.6 (0.2-0.8); NEUTROPHILS # (AUTO) 7.4 (2.1-6.9); NEUTROPHILS % 84.3 % (38.7-80.0); PLATELET COUNT 103 x10e3/uL (140-360); RED BLOOD COUNT 4.14 x10e6/uL (4.3-5.7); RED CELL DISTRIBUTION WIDTH 13.6 % (11.7-14.4)
[2018-10-04 06:31] LABS: ALANINE AMINOTRANSFERASE 64 IU/L (0-55); ALBUMIN 2.1 g/dL (3.5-5.0); ALBUMIN/GLOBULIN RATIO 0.8 (0.8-2.0); ANION GAP 11.7 mmol/L (8-16); BLOOD UREA NITROGEN 15 mg/dL (7-26); BUN/CREATININE RATIO 16 (6-25); CALCIUM 7.8 mg/dL (8.4-10.2); CARBON DIOXIDE 25 mmol/L (22-29); CHLORIDE 99 mmol/L (98-107); CREATININE, SERUM 0.91 mg/dL (0.72-1.25); EST GLOMERULAR FILTRATION RATE > 60 ML/MIN (60-); GLUCOSE 173 mg/dL (74-118); POTASSIUM 3.7 mmol/L (3.5-5.1); SODIUM 132 mmol/L (136-145)
[2018-10-04 06:44] LABS: ALKALINE PHOSPHATASE 122 IU/L (40-150)
--- NOTE | 2018-10-04 07:00 | NUR ---
BEDSIDE SHIFT REPORT RECEIVED FROM THE DRY MILL WORKER RN. PT DENIES NEEDS AT THIS TIME.
--- NOTE | 2018-10-04 07:10 | NUR ---
REPORT GIVEN TO ONCOMING NURSE.WALKING ROUNDS MADE.PT RESTING IN BED WITH NO S/S OF DISTRESS.
[2018-10-04 07:21] LABS: EOSINOPHILS % (MANUAL) 1 % (0-7); LYMPHOCYTES % (MANUAL) 6 % (19-48); MONOCYTES % (MANUAL) 6 % (3.4-9.0); NEUTROPHILS % (MANUAL) 87 % (40-74); PLATELET ESTIMATE SLIGHTLY DECREASED; PLATELET MORPHOLOGY COMMENT NORMAL; RBC MORPHOLOGY COMMENT NORMAL
[2018-10-04] MEDS: INSULIN REGULAR, HUMAN 100 UNIT/1 ML 3ML VIAL SQ SCH ×2 (08:00→12:30)
[2018-10-04 08:01] VITALS: BP 130/60
[2018-10-04] MEDS: PANTOPRAZOLE SOD 40 MG TABEC PO SCH (08:05)
[2018-10-04] MEDS: ASPIRIN 81 MG CHEW TAB PO SCH (08:41)
[2018-10-04] MEDS: CLOPIDOGREL BISULFATE 75 MG TAB PO SCH (08:41)
[2018-10-04] MEDS: METOPROLOL SUCCINATE 25 MG TAB XL PO SCH (08:44)
[2018-10-04] MEDS: LISINOPRIL 2.5 MG TAB PO SCH (08:44)
[2018-10-04] MEDS ORDERED: LIDOCAINE 5% PATCH TP SCH (09:00)
[2018-10-04 09:04] VITALS: BP 130/60
[2018-10-04] MEDS: LIDOCAINE 5% PATCH TP PRN (09:31)
[2018-10-04] MEDS: HYDROMORPHONE 1MG/1ML INJ IV PRN (09:39)
--- NOTE | 2018-10-04 11:35 | NUR ---
DR. SLOAN AT BEDSIDE. PT C/O BACK PAIN. DR SLOAN WANTS TO ORDER LUMBAR XRAY BUT PT WANTS TO GO HOME.
[2018-10-04 11:40] VITALS: BP 120/58
--- NOTE | 2018-10-04 12:25 | Progress Note ---
DATE: Cardiology Progress Note SUBJECTIVE: The patient reports lower back pain. Denies any abdominal pain. Denies any chest pain, shortness of breath, or palpitations. Denies any diarrhea. OBJECTIVE: VITAL SIGNS: Temperature 97.8, pulse 73, respiratory rate 20, blood pressure 130/60, and oxygen saturation 93% on room air. GENERAL: Alert and oriented x3. Resting comfortably in bed. Does not appear to be in any acute distress. NECK: Supple. No JVD noted. CARDIOVASCULAR: Regular rate and rhythm. No gallops. No murmurs. LUNGS: Clear to auscultation throughout. No wheezing. No rhonchi or crackles. ABDOMEN: Soft and nontender. EXTREMITIES: Lower extremity, no edema. Absent pedal pulses. LABORATORY DATA: WBC 8.80, hemoglobin 11.9, hematocrit 35.3, and platelets 103. Sodium 132, potassium 3.7, BUN 15, creatinine 0.91, GFR greater than 60, ALT 64, AST 25, and alkaline phosphatase 122. TELEMETRY: V-paced rhythm. IMPRESSION: 1. Acute pancreatitis. 2. Clostridium difficile. 3. Coronary artery disease, status post percutaneous coronary intervention x2. 4. Systolic heart failure, status post BiV ICD. 5. Hypertension. 6. Hyperlipidemia. 7. Peripheral arterial disease, status post right thrombotic microangiopathy .. 8. Diabetes mellitus. 9. Acute kidney injury, now improved. RECOMMENDATIONS: Continue antimicrobial therapy per Infectious Disease. Maintain the patient on telemetry. Continue cardiac medication. No cardiac evaluation is indicated at this time. We will continue to follow this patient closely. Dictated by Janie Hansen NP MD JOSE GUADALUPE Hammer/AKANKSHA /[id number]
--- NOTE | 2018-10-04 13:30 | NUR ---
PT REFUSED ANTIBIOTICS AND WANTS TO GO HOME
[2018-10-04] MEDS ORDERED: TYLENOL WITH C1 EACH PO (13:42)
[2018-10-04] MEDS ORDERED: LIDOCAINE HCL50 ML TOP (13:43)
--- NOTE | 2018-10-04 14:00 | NUR ---
PATIENT DISCHARGED SAFELY HOME WITH FAMILY. IV REMOVED. TIP INTACT. NO BLEEDING NOTED. DRESSING APPLIED. PT DENIED FURTHER NEEDS.
--- NOTE | 2018-10-04 16:07 | Progress Note ---
DATE: This is a quick progress note that we will add to the chart. The patient had a CT imaging ordered yesterday of his lumbar back as well as x-ray imaging due to back pain. He was told that he cannot have those performed here at this hospital stay due to insurance issues. He was afraid that he will have to pay some money. I reiterated with the patient as well as his at bedside that I can go ahead and try to get this done while he is here because I do not know what is going on with his back. He verbalized to me in the nurse, Jani. He does not want any imaging studies performed at this time in fear that he has to pay. He does have an appointment on 10/07/2018 here at [facility] as an outpatient at 3 p.m. with outpatient Radiology to have imaging studies performed at that time. I told him I do not know the cause of his back pain, could be muscle spasms, could be other etiology. I do not know, but at this time, he understands the risks and benefits in relation to this and he wants to go home. I discussed this with the as well, who is at bedside. Nurse witnessed entire conversation at bedside. At this time due to the fact that the patient wants to be discharged, he understands the risks involved. I will go ahead and discharge him and advice him to please follow up as an outpatient for his imaging studies and follow up with his PCP. Otherwise, we will go ahead and discharge him home. I also discussed this case with Infectious Disease and he just told me to discharge him on oral vancomycin, which the patient already has a prescription for. No other antibiotics were needed. In terms of GI, no further workup was needed as well. In terms of Cardiology, no further workup needed. MD ARACELI Yancey/AKANKSHA /[id number]
--- NOTE | 2018-10-04 20:03 | Discharge Summary ---
FINAL DISCHARGE DIAGNOSES: 1. Acute pancreatitis with duodenitis-resolved, GI was following, needs outpatient followup in his office with downtrending liver function tests. 2. History of Clostridium difficile colitis-Clostridium difficile toxin negative, has oral vancomycin at home, which we will continue and follow up with ID as an outpatient. 3. Type 2 diabetes. 4. Acute kidney injury secondary to dehydration, resolved. 5. Hypertension. 6. History of congestive heart failure with systolic dysfunction-cleared by Cardiology for discharge. 7. Lower back pain, likely to be musculoskeletal etiology with muscle strain-the patient and refuses to do any imaging studies currently. I would like to follow up on their scheduled appointment on Saturday of next week. I had the nurse present during this conversation and the family wanted no imaging studies at this time, fear that they will have to pay out of their pocket. There is a scheduled appointment for Saturday of next and which best what they wanted to pursue. CONSULTANTS: 1. ID. 2. GI. 3. Cardiology. PHYSICAL EXAMINATION: VITAL SIGNS: Temperature is 96.6, pulse 69, respiratory rate is 18, blood pressure is 120/58, and pulse ox 93% on room air. LAB FINDINGS: Show white count 8.8, hemoglobin 11.9, hematocrit is 35, and platelets of 103. Chemistry; sodium 132, potassium 3.7, chloride 99, bicarb 25, anion gap of 11, BUN 15, creatinine 0.91, glucose 173, calcium 7.8. Total bilirubin is 1.7, on admission was 5.4, down trending to 1.7. LFTs; AST on admission 58, downtrended to 25, ALT was 205, downtrended to 64, alkaline phosphatase was 122, albumin 2.1. LDL was 38. Lipase level was 26, on admission was 341, downtrended to 26. TSH 0.33. Amylase level on admission 489, downtrended to 51. Urinalysis was negative. Clostridium difficile toxin negative. MICROBIOLOGY: None. IMAGING STUDIES: CT abdomen and pelvis, impression; mild peripancreatic fat stranding concerning for acute pancreatitis. There is also wall thickening of the second portion of the duodenal bulb adjacent to fat stranding, which could be reactive due to pancreatitis or recent mild duodenitis. Bladder wall thickening could represent cystitis. Correlation with urinalysis. HOSPITAL COURSE: This is a 63-year-old male with multiple comorbidities, who came into the hospital with complaints of abdominal pain epigastrically, radiated through his back. Imaging studies were consistent with acute pancreatitis and found to have elevated LFTs. GI consultation was performed. While here per GI, they recommended MRCP, but the patient has an AICD, which was contraindicated. At this time, his recommendations were if his LFTs continue to downtrend as well as his lipase level, he can follow up as an outpatient in his office for further management and care. In the event, it did not, he recommended ERCP. While here, his LFTs downtrended and his lipase downtrended as well with no issues. His LFTs showed a T-bili on discharge 1.7. His AST, ALT within normal range and his lipase has improved tremendously as well. No further workup was needed by GI as well. Cardiology was consulted as well to come and evaluate him due to his underlying heart failure. The patient was to continue with cardioprotective medications with no changes at this time. No further cardiac workup was needed. ID was consulted as well. The patient has a history of C difficile colitis, was on oral vancomycin as an outpatient. While here, his C difficile toxin was negative. He had no more bouts of diarrhea. It seems that the patient likely has some viral gastroenteritis etiology at this time. He is currently doing well with no complaints. He was being cleared for discharge by ID as well to continue with oral vancomycin only at this time. In relation to lower back pain, he reports to me that this is chronic in nature and he has been having this issue for significant period of time. Of note, he came in reports of lower back pain. I had ordered x-ray of lumbar spine to further evaluate. Apparently, he had an appointment to have this particular x-ray set up as an outpatient. He was concerned that if he was to perform any imaging studies here in the hospital, that he will have to incur a charge. Instead, he wanted to go ahead and cancel the x-ray of the lumbar spine as well. There was a CT of the lumbar spine ordered by Infectious Disease. At this time, him and his wanted no imaging studies here, in fear that they will have to pay any cost. There is an appointment scheduled for him on next Saturday for an x-ray of the lumbar back on 10/07/2018 at 3 p.m. The patient showed me the card in relation to that appointment. At this time, I expressed to him that I could do the imaging studies here and see what the results are, but at this time, both and were not interested at this time, instead want to go home. He will go home on Tylenol No. 3 as well as lidocaine patches for pain. He was advised to follow up with his PCP in relation to the imaging studies that he refused to have performed here. Nurse was present throughout this entire conversation and the family verbalized understanding and agree with plan of care. On discharge, the patient was doing well with no other issues. On the day of discharge, vital signs were stable. Labs were reviewed and stable. The patient was seen and evaluated, examined thoroughly on the day of discharge. No other complaints. The patient verbalized understanding and agrees to plan of care to follow up accordingly as an outpatient with the primary care physician in 1 week and his lumbar imaging, which is scheduled on the 10/07/2018 at 3 p.m. here at [facility] and the consultants as described above in about 2 weeks' time. MEDICATIONS: See med reconciliation form. DISPOSITION: Home. CONDITION: Stable. DIET: Heart healthy. In the event of any worsening symptoms, the patient advised to come back to the ED for further evaluation. Discharge summary took greater than 30 minutes. Once again, the patient has been cleared for discharge by all consultants including ID, GI, and Cardiology. MD ARACELI Yancey/AKANKSHA /[id number]
== END 2018-10-04 14:11 | disposition home or self-care (01) | DRG 871 ==
LOC: ER 18:23 → ERHOLD 21:15 → MED/SURG3 21:41
PROVIDERS: ADMIT Internal Medicine; ATTEND Internal Medicine
DX: A41.9 Sepsis, unspecified organism (principal); K85.90 Acute pancreatitis without necrosis or infection, unspecified; N17.9 Acute kidney failure, unspecified; A09 Infectious gastroenteritis and colitis, unspecified; I50.22 Chronic systolic (congestive) heart failure; A04.71 Enterocolitis due to Clostridium difficile, recurrent; R10.9 Unspecified abdominal pain; K29.80 Duodenitis without bleeding; E86.0 Dehydration; M54.5 Low back pain; I11.0 Hypertensive heart disease with heart failure; Z95.810 Presence of automatic (implantable) cardiac defibrillator; E11.9 Type 2 diabetes mellitus without complications; I25.10 Atherosclerotic heart disease of native coronary artery without angina pectoris; Z95.5 Presence of coronary angioplasty implant and graft; E87.5 Hyperkalemia
CPT/HCPCS: 36415; 74177; 80053; 80061; 80202; 81001; 82150; 82948; 83036; 83690; 84443; 85025; 87493; 99284; J1170; J1817; J2405; J2543; J7030; J7042; J7799; Q9967

== ENCOUNTER → 2018-10-07 | Outpatient (CLI) | payer MEDICARE ==
[~2018-10-07] MED LIST changes: +DICYCLOMINE HCL10 MG PO; +LIDOCAINE HCL50 ML TOP; +TYLENOL WITH C1 EACH PO; +VANCOMYCIN HCL250 MG PO
--- NOTE | 2018-10-08 10:13 | Diagnostic Imaging Report ---
EXAMINATION: CT of the thoracic and lumbar spine without contrast. HISTORY: Low back pain radiating to the bilateral lower extremities, lumbar radiculopathy COMPARISON: Abdomen CT of 10/01/2018 TECHNIQUE: Multidetector helical axial images were obtained without contrast from T1 to S1. The images were reconstructed using bone and soft tissue algorithms and were viewed in axial, sagittal, and coronal planes. Dose modulation, iterative reconstruction, and/or weight based adjustment of the mA/kV was utilized to reduce the radiation dose to as low as reasonably achievable. FINDINGS: Alignment: Normal lumbar lordosis mild increased upper thoracic kyphosis.. Vertebral bodies: Normal height and density. Paraspinal soft tissues: Partially visualized pacemaker leads, small right pleural effusion and right upper quadrant cholecystectomy clips. Intervertebral disks: Minimal disc bulge at L5-S1 without spinal canal or foraminal stenosis, otherwise no significant degenerative changes in the thoracic or lumbar spine, no spinal canal foraminal stenosis in the thoracic or lumbar segments. Sacroiliac joints: Mild degenerative changes bilaterally. IMPRESSION: No acute abnormalities of the thoracic or lumbar spine. No significant degenerative changes, spinal canal or foraminal stenosis. Signed by: Dr. Morena Tse M.D. on 10/08/2018 10:09 AM
== END ==
LOC: CT 14:36
PROVIDERS: ATTEND Internal Medicine Infectious Disease
DX: M54.5 Low back pain (principal); M54.6 Pain in thoracic spine
CPT/HCPCS: 72128; 72131

== ENCOUNTER 2024-08-11 10:19 | Inpatient (IN) | payer MEDICARE ==
[2024-08-11] VITALS (10 sets, daily range): BP systolic 129–131; BP diastolic 64–87; PULSE 67–72; RESP 16–18; TEMP 97.5–98.1; O2SAT 94–99
[~2024-08-11] VITALS: Ht 177.8 cm; Wt 86.2 kg
[~2024-08-11 10:19] MED LIST changes: +ACETAMINOPHEN325 M1 PO; +AMIODARONE HCL200 MG PO; +FLOMAX0.4 MG PO; +FUROSEMIDE40 MG PO; +LEVOFLOXACIN250 MG PO; +LYRICA100 MG PO; +METOPROLOL SUCC50 MG PO; +METOPROLOL TART25 MG PO; +MIDODRINE HCL5 MG PO; +NEURONTIN100 MG PO; +NOVOLIN 70100 UNIT/3; +NOVOLOG100 UNIT/1 SC; +ONDANSETRON ODT4 MG PO; +TEMAZEPAM15 MG PO; +TEMAZEPAM30 MG; +TIZANIDINE HCL4 MG PO; +XARELTO10 MG PO
[2024-08-11] MEDS ORDERED: SODIUM CHLORIDE 0.9% 1000ML 2,590 ML IV SCH (10:45)
[2024-08-11 11:12] LABS: BASOPHILS % 0.4 % (0.0-1.0); EOSINOPHILS % 2.1 % (0.0-6.0); LYMPHOCYTES % 10.0 % (18.0-39.1); MONOCYTES % 7.8 % (4.4-11.3); NEUTROPHILS % 79.3 % (38.7-80.0); RED CELL DISTRIBUTION WIDTH 15.5 % (11.7-14.4)
[2024-08-11 11:24] LABS: INR 1.32
[2024-08-11 11:33] LABS: EST GLOMERULAR FILTRATION RATE 53.0 ML/MIN (>=60)
[2024-08-11] MEDS: ONDANSETRON HCL INJ 2MG/ML 2ML 2 MG/ML VIAL IV PRN (11:40)
[2024-08-11] MEDS: Morphine 4mg INJECTION 4 MG/ML INJ IV PRN (11:40)
[2024-08-11] MEDS: SODIUM CHLORIDE 0.9% 500ML 500 ML IV ONE (12:24)
[2024-08-11] MEDS ORDERED: TRESIBA100 UNIT/1 SC (14:20)
[2024-08-11] MEDS ORDERED: JARDIANCE10 MG PO (14:20)
[2024-08-11] MEDS ORDERED: GEMTESA75 MG PO (14:20)
[2024-08-11] MEDS ORDERED: MYRBETRIQ50 MG PO (14:20)
[2024-08-11] MEDS ORDERED: TOPIRAMATE25 MG PO (14:20)
[2024-08-11] MEDS ORDERED: TIZANIDINE HCL4 M1 PO (14:20)
[2024-08-12] VITALS (7 sets, daily range): BP systolic 113–143; BP diastolic 61–75; PULSE 68–82; RESP 18; TEMP 97.7–98.5; O2SAT 95–100
[2024-08-12 05:34] LABS: BASOPHILS % 0.6 % (0.0-1.0); EOSINOPHILS % 3.1 % (0.0-6.0); LYMPHOCYTES % 14.1 % (18.0-39.1); MONOCYTES % 8.6 % (4.4-11.3); NEUTROPHILS % 73.4 % (38.7-80.0); RED CELL DISTRIBUTION WIDTH 15.3 % (11.7-14.4)
[2024-08-12 06:05] LABS: EST GLOMERULAR FILTRATION RATE 62.0 ML/MIN (>=60)
[2024-08-12] MEDS: Vancomycin IV 1 GM in SODIUM CHLORIDE 0.9% 250ML 250 ML IV SCH (12:03)
[2024-08-12] MEDS ORDERED: ONDANSETRON HCL 4 MG ORAL DISINTEGRATING TAB PO PRN (12:15)
[2024-08-12] MEDS ORDERED: TIZANIDINE HCL 4 MG TAB PO PRN (12:15)
[2024-08-12] MEDS ORDERED: TAMSULOSIN HCL 0.4 MG CAP PO PRN (12:15)
[2024-08-12] MEDS ORDERED: MIDODRINE HCL 5 MG TABLET PO PRN (12:15)
[2024-08-12] MEDS ORDERED: FUROSEMIDE 40 MG TAB PO PRN (12:15)
[2024-08-12] MEDS ORDERED: TOPIRAMATE 25 MG TAB PO PRN (12:15)
[2024-08-12] MEDS ORDERED: DEXTROSE 50% SYRINGE 50 ML IV PRN (12:15)
[2024-08-12] MEDS: PREGABALIN 50 MG CAP PO SCH (15:01)
[2024-08-12] MEDS: INSULIN REGULAR, HUMAN 100 UNIT/1 ML SQ SCH (16:30)
[2024-08-12] MEDS: ATORVASTATIN 40 MG TAB PO SCH (21:54)
[2024-08-12] MEDS: TEMAZEPAM 15 MG CAP PO SCH (21:54)
[2024-08-12] MEDS: AMIODARONE HCL 200 MG TAB PO SCH (21:55)
[2024-08-13] VITALS (7 sets, daily range): BP systolic 114–143; BP diastolic 55–87; PULSE 69–85; RESP 18–20; TEMP 97–98.4; O2SAT 96–100
[2024-08-13 05:53] LABS: BASOPHILS % 0.6 % (0.0-1.0); EOSINOPHILS % 2.3 % (0.0-6.0); LYMPHOCYTES % 14.1 % (18.0-39.1); MONOCYTES % 8.7 % (4.4-11.3); NEUTROPHILS % 73.7 % (38.7-80.0); RED CELL DISTRIBUTION WIDTH 15.2 % (11.7-14.4)
[2024-08-13 06:20] LABS: CHOL/HDL RATIO 3.1 (3.9-4.7); EST GLOMERULAR FILTRATION RATE 62.0 ML/MIN (>=60); LDL CHOLESTEROL 41.0 MG/DL (60-130)
[2024-08-13] MEDS: ASPIRIN 81 MG CHEW TAB PO SCH (08:47)
[2024-08-13] MEDS: PANTOPRAZOLE SOD 40 MG TABEC PO SCH (08:47)
[2024-08-13] MEDS: EMPAGLIFLOZIN 10 MG TABLET PO SCH (08:50)
[2024-08-13] MEDS: METOPROLOL SUCCINATE 25 MG TAB XL PO SCH (09:22)
[2024-08-13] MEDS: POTASSIUM CHLORIDE 10MEQ EA PO ONE (23:25)
[2024-08-14 00:16] VITALS: BP 118/71; PULSE 69; RESP 18; TEMP 97.9; O2SAT 99
[2024-08-14 03:59] VITALS: BP 111/62; PULSE 69; RESP 18; TEMP 97.8; O2SAT 100
[2024-08-14 08:00] VITALS: BP 111/64; PULSE 70; RESP 17; TEMP 97.9; O2SAT 100
[2024-08-14 08:58] LABS: EST GLOMERULAR FILTRATION RATE 73.0 ML/MIN (>=60); PHOSPHORUS 3.1 MG/DL (2.3-4.7)
[2024-08-14 09:00] VITALS: BP 111/64; PULSE 70; RESP 17; TEMP 97.9; O2SAT 100
[2024-08-14 12:00] VITALS: BP 120/64; PULSE 70; RESP 18; TEMP 98.2; O2SAT 100
[2024-08-14 20:00] VITALS: BP_SYST 120; BP_DIAS 80; BP_DIAS 81; PULSE 72; RESP 18; TEMP 97.2; O2SAT 100; O2SAT 99
[2024-08-15] VITALS: BP 117/75; PULSE 70; RESP 18; TEMP 97; O2SAT 99
[2024-08-15 08:00] VITALS: BP 117/75; PULSE 70; RESP 18; TEMP 97; O2SAT 99
[2024-08-15 08:41] VITALS: BP 100/58; PULSE 81; RESP 18; TEMP 97.9; O2SAT 98
[2024-08-15 14:50] VITALS: BP 139/77; PULSE 70; RESP 18; TEMP 97.6; O2SAT 100
== END 2024-08-15 16:54 | disposition home or self-care (01) | DRG 300 ==
LOC: ER 10:32 → ERHOLD 10:58 → MED/SURG2 12:42
PROVIDERS: ADMIT Internal Medicine; ATTEND Internal Medicine
PROC: 05HY33Z Insertion of Infusion Device into Upper Vein, Percutaneous Approach (ICD-10-PCS; principal; 2024-08-13)
DX: E11.52 Type 2 diabetes mellitus with diabetic peripheral angiopathy with gangrene (principal); I50.22 Chronic systolic (congestive) heart failure; I96 Gangrene, not elsewhere classified; M86.9 Osteomyelitis, unspecified; Z16.12 Extended spectrum beta lactamase (ESBL) resistance; N17.9 Acute kidney failure, unspecified; E11.621 Type 2 diabetes mellitus with foot ulcer; L03.032 Cellulitis of left toe; L97.529 Non-pressure chronic ulcer of other part of left foot with unspecified severity; I25.10 Atherosclerotic heart disease of native coronary artery without angina pectoris; G43.909 Migraine, unspecified, not intractable, without status migrainosus; I11.0 Hypertensive heart disease with heart failure; M19.90 Unspecified osteoarthritis, unspecified site; E78.00 Pure hypercholesterolemia, unspecified; K21.9 Gastro-esophageal reflux disease without esophagitis; I48.0 Paroxysmal atrial fibrillation; E11.69 Type 2 diabetes mellitus with other specified complication; B96.20 Unspecified Escherichia coli [E. coli] as the cause of diseases classified elsewhere; B95.2 Enterococcus as the cause of diseases classified elsewhere; E11.40 Type 2 diabetes mellitus with diabetic neuropathy, unspecified; I25.2 Old myocardial infarction; Z79.4 Long term (current) use of insulin; Z95.0 Presence of cardiac pacemaker; Z88.6 Allergy status to analgesic agent; Z88.5 Allergy status to narcotic agent; Z95.1 Presence of aortocoronary bypass graft; Z95.5 Presence of coronary angioplasty implant and graft
CPT/HCPCS: 36415; 36569; 71045; 80048; 80053; 80061; 80202; 82948; 83036; 83735; 84100; 85025; 85610; 85730; 87040; 87071; 87186; 87205; 93306; 93926; 94799; 99252; 99284; J1335; J2270; J2405; J2470; J2543; J7050

== ENCOUNTER 2024-09-01 11:14 | Inpatient (IN) | payer MEDICARE ==
[~2024-09-01] VITALS: Ht 177.8 cm; Wt 86.2 kg
[~2024-09-01 11:14] MED LIST changes: +GEMTESA75 MG PO; +JARDIANCE10 MG PO; +MYRBETRIQ50 MG PO; +TIZANIDINE HCL4 M1 PO; +TOPIRAMATE25 MG PO; +TRESIBA100 UNIT/1 SC
[2024-09-01 12:14] LABS: BASOPHILS % 0.4 % (0.0-1.0); EOSINOPHILS % 1.1 % (0.0-6.0); LYMPHOCYTES % 6.5 % (18.0-39.1); MONOCYTES % 8.9 % (4.4-11.3); NEUTROPHILS % 82.5 % (38.7-80.0); RED CELL DISTRIBUTION WIDTH 15.4 % (11.7-14.4)
[2024-09-01 12:34] LABS: INR 1.1
[2024-09-01 12:47] LABS: EST GLOMERULAR FILTRATION RATE 56.0 ML/MIN (>=60)
[2024-09-01] MEDS: SODIUM CHLORIDE 0.9% 500ML 500 ML IV ONE (13:48)
[2024-09-01 14:19] LABS: LEUKOCYTE ESTERASE ,URINE NEGATIVE (NEGATIVE); PROTEIN,URINE DIPSTICK NEGATIVE (NEGATIVE); URINE UROBILINOGEN 0.2 mg/dL (0.2 - 1)
[2024-09-01 14:32] LABS: WBC,URINE (MAN) 0-5 /HPF (0-5)
[2024-09-01] MEDS ORDERED: ONDANSETRON HCL INJ 2MG/ML 2ML 2 MG/ML VIAL IV PRN (15:30)
[2024-09-01] MEDS: SODIUM CHLORIDE 0.9% 1000ML 1,000 ML IV SCH (17:09)
[2024-09-01 17:10] VITALS: PULSE 70; RESP 16; TEMP 98.5
[2024-09-01 20:26] VITALS: BP 136/75; PULSE 71; RESP 20; TEMP 98.5; O2SAT 99
[2024-09-01 21:00] VITALS: BP 136/75; PULSE 71; RESP 20; TEMP 98.5; O2SAT 99
[2024-09-01 23:03] VITALS: BP 116/65; PULSE 71; RESP 18; TEMP 98.8; O2SAT 98
[2024-09-02 08:00] VITALS: BP 109/59; PULSE 70; RESP 18; TEMP 98.5; O2SAT 96
[2024-09-02 08:58] LABS: EST GLOMERULAR FILTRATION RATE 76.0 ML/MIN (>=60)
[2024-09-02 09:00] VITALS: BP 100/59; PULSE 70; RESP 18; TEMP 98.5; O2SAT 98
[2024-09-02 09:15] LABS: BASOPHILS % 0.9 % (0.0-1.0); EOSINOPHILS % 3.4 % (0.0-6.0); LYMPHOCYTES % 11.0 % (18.0-39.1); MONOCYTES % 9.2 % (4.4-11.3); NEUTROPHILS % 75.1 % (38.7-80.0); RED CELL DISTRIBUTION WIDTH 15.4 % (11.7-14.4)
[2024-09-02 13:01] VITALS: BP 126/20; PULSE 70; RESP 20; TEMP 97.9; O2SAT 100
[2024-09-02 16:00] VITALS: BP 116/62; PULSE 71; RESP 17; TEMP 98.6; O2SAT 100
[2024-09-02 20:00] VITALS: BP_SYST 132; BP_SYST 187; BP_DIAS 66; BP_DIAS 87; PULSE 62; PULSE 69; RESP 20; TEMP 98.1; TEMP 98.6; O2SAT 100; O2SAT 97
[2024-09-02] MEDS ORDERED: FUROSEMIDE 40 MG TAB PO PRN (23:45)
[2024-09-02] MEDS ORDERED: TAMSULOSIN HCL 0.4 MG CAP PO PRN (23:45)
[2024-09-02] MEDS ORDERED: TIZANIDINE HCL 4 MG TAB PO PRN (23:45)
[2024-09-02] MEDS ORDERED: MIDODRINE HCL 5 MG TABLET PO PRN (23:45)
[2024-09-02] MEDS ORDERED: TOPIRAMATE 25 MG TAB PO PRN (23:45)
[2024-09-03] VITALS: BP 121/61; PULSE 70; RESP 20; TEMP 98; O2SAT 97
[2024-09-03 04:00] VITALS: BP 114/59; PULSE 71; RESP 20; TEMP 98.1; O2SAT 98
[2024-09-03 06:47] LABS: FOLATE (REF LAB) 6.8 ng/mL (>3.0)
[2024-09-03 07:00] VITALS: BP 123/62; PULSE 70; RESP 18; TEMP 98.4; O2SAT 100
[2024-09-03 08:00] VITALS: BP 123/62; PULSE 70; RESP 18; TEMP 98.4; O2SAT 100
[2024-09-03] MEDS: METOPROLOL SUCCINATE 25 MG TAB XL PO SCH (09:34)
[2024-09-03] MEDS: PREGABALIN 50 MG CAP PO SCH (09:34)
[2024-09-03] MEDS: PANTOPRAZOLE SOD 40 MG TABEC PO SCH (09:34)
[2024-09-03 12:00] VITALS: BP 110/55; PULSE 70; RESP 16; TEMP 98.1; O2SAT 95
[2024-09-03] MEDS ORDERED: TEMAZEPAM 15 MG CAP PO SCH (21:00)
[2024-09-03] MEDS ORDERED: ATORVASTATIN 20 MG TAB PO SCH (21:00)
[2024-09-03] MEDS ORDERED: AMIODARONE HCL 200 MG TAB PO SCH (21:00)
== END 2024-09-03 17:00 | disposition home or self-care (01) | DRG 92 ==
LOC: ER 11:38 → ERHOLD 15:22 → MED/SURG3 19:47
PROVIDERS: ADMIT Internal Medicine; ATTEND Internal Medicine
DX: R26.81 Unsteadiness on feet (principal); I50.22 Chronic systolic (congestive) heart failure; L97.528 Non-pressure chronic ulcer of other part of left foot with other specified severity; I11.0 Hypertensive heart disease with heart failure; E11.69 Type 2 diabetes mellitus with other specified complication; E11.621 Type 2 diabetes mellitus with foot ulcer; E11.51 Type 2 diabetes mellitus with diabetic peripheral angiopathy without gangrene; R53.81 Other malaise; I25.10 Atherosclerotic heart disease of native coronary artery without angina pectoris; E78.00 Pure hypercholesterolemia, unspecified; G43.909 Migraine, unspecified, not intractable, without status migrainosus; R29.6 Repeated falls; M19.90 Unspecified osteoarthritis, unspecified site; Z79.4 Long term (current) use of insulin; Z79.84 Long term (current) use of oral hypoglycemic drugs; Z79.82 Long term (current) use of aspirin; I25.2 Old myocardial infarction; Z95.1 Presence of aortocoronary bypass graft; Z95.810 Presence of automatic (implantable) cardiac defibrillator; Z89.432 Acquired absence of left foot; Z87.891 Personal history of nicotine dependence
CPT/HCPCS: 36415; 70450; 71250; 72125; 72170; 80053; 81001; 82550; 82607; 82746; 82948; 83735; 83880; 84484; 85025; 85610; 85730; 86592; 87040; 87086; 93005; 93925; 99252; 99284; J0692; J2470; J7030; J7040

== ENCOUNTER → 2024-09-11 | Day surgery (SDC) | payer MEDICARE ==
[2024-09-09 11:27] LABS: BASOPHILS % 0.7 % (0.0-1.0); EOSINOPHILS % 1.6 % (0.0-6.0); LYMPHOCYTES % 9.9 % (18.0-39.1); MONOCYTES % 8.5 % (4.4-11.3); NEUTROPHILS % 78.9 % (38.7-80.0); RED CELL DISTRIBUTION WIDTH 15.9 % (11.7-14.4)
[2024-09-09 11:54] LABS: EST GLOMERULAR FILTRATION RATE 72.0 ML/MIN (>=60)
[~2024-09-11] MED LIST changes: +FENTANYL CITRATE/PF 100MCG/2 ML INJ ONE; +LIDOCAINE HCL 2% LOCAL INJ 5 ML SDV VIAL INJ ONE; +ONDANSETRON HCL INJ 2MG/ML 2ML 2 MG/ML VIAL ONE; +PROPOFOL IV EMULSION 50 ML IV ONE
[2024-09-11] MEDS: LACTATED RINGER'S 1,000 ML ONE (07:27)
[2024-09-11 09:55] VITALS: BP 123/65; PULSE 70; RESP 12; O2SAT 97
== END | disposition home or self-care (01) ==
LOC: OR 06:16
PROVIDERS: ATTEND Podiatrist Foot Surgery
DX: E10.621 Type 1 diabetes mellitus with foot ulcer (principal); L97.524 Non-pressure chronic ulcer of other part of left foot with necrosis of bone; E10.69 Type 1 diabetes mellitus with other specified complication; M86.9 Osteomyelitis, unspecified; K21.9 Gastro-esophageal reflux disease without esophagitis; E78.00 Pure hypercholesterolemia, unspecified; Z79.4 Long term (current) use of insulin; Z01.810 Encounter for preprocedural cardiovascular examination; Z01.812 Encounter for preprocedural laboratory examination; Z95.0 Presence of cardiac pacemaker; Z95.1 Presence of aortocoronary bypass graft; Z79.82 Long term (current) use of aspirin
CPT/HCPCS: 28820; 36415 ×2; 71046; 80048; 82948; 85025; 88305; 88311; 93005; J0690; J2405; J2704; J3010; J7121; 88304; J2003